=== PATIENT | male | born 1955 | race Caucasian/White ===

== ENCOUNTER 2016-12-04 18:45 | Inpatient (IN) | payer MEDICARE, MEDICAID ==
[2016-12-04] MEDS ORDERED: VANCOMYCIN HCL 1 GM in DEXTROSE 5 % IN WATER 250 ML IV ONE ×2 (19:22)
[2016-12-04] MEDS ORDERED: NORMAL SALINE 1,000 ML IV ONE (19:22)
--- NOTE | 2016-12-04 19:26 | ERNOTE ---
Medical Problem HPI - Narrative Date of Service: 12/04/16 - General Chief Complaint: Diabetes Related Problem Time Seen by Provider: 12/04/16 19:05 Source: patient - Immun/Allergies/Home Medications Immunizations: IMMUNIZATION HX Immunizations Up to Date Yes History of Influenza Vaccine No Hx Pneumococcal Vaccination No Allergies/Adverse Reactions: Allergies amoxicillin [From Augmentin] Allergy (Severe, Verified 12/04/16 19:04) Swelling of Face clavulanic acid [From Augmentin] Allergy (Severe, Verified 12/04/16 19:04) Swelling of Face Home Medications: HOME MEDICATIONS Clopidogrel Bisulfate [Plavix] 75 mg PO DAILY 12/04/16 [Last Taken Unknown] Furosemide [Lasix] 40 mg PO DAILY 12/04/16 [Last Taken Unknown] Insulin Aspart [Novolog Flexpen] 100 unit SQ BID 12/04/16 [Last Taken Unknown] Insulin Degludec [Tresiba Flextouch U-100] 100 unit SQ DAILY 12/04/16 [Last Taken Unknown] Linagliptin [Tradjenta] 5 mg PO DAILY 12/04/16 [Last Taken Unknown] Lisinopril 5 mg PO DAILY 12/04/16 [Last Taken Unknown] Lovastatin 80 mg PO HS 12/04/16 [Last Taken Unknown] Metolazone 2.5 mg PO DAILY 12/04/16 [Last Taken Unknown] Metoprolol Tartrate [Lopressor] 25 mg PO BID 12/04/16 [Last Taken Unknown] - History of Present History Narrative: This is a 61-year-old with a history of chronic kidney disease and severe diabetes insulin-dependent comes to the emergency department complaining of right leg swelling and pain. He says this been going on for 2 days. The patient has had cellulitis in his legs in the past, and this feels much like it did previously. He has multiple scabs due to venous stasis on the anterior hummel. He says that the swelling and redness is getting a little bit worse. He denies fever. He has had nausea and vomiting. He does have a history of DKA. Patient denies any chest pain or shortness of breath. He denies any recent car trips or plane trips. Patient has never had a blood clot. Review of Systems - Review of Systems Constitutional: Present: weakness, fatigue, malaise EYE: Present: no symptoms reported ENT: Present: no symptoms reported Respiratory: Present: no symptoms reported Cardiology: Present: no symptoms reported Gastrointestinal/Abdominal: Present: nausea, vomiting, eating less, drinking less. Absent: diarrhea, constipation, abdominal pain Genitourinary: Present: no symptoms reported Musculoskeletal: Present: muscle pain, joint pain, other - right lower extremity Skin: Present: rash, other - redness and warmth right lower extremity Neurological: Present: no symptoms reported Endocrine: Present: other - blood sugar has been increased Hematologic/Lymphatic: Present: no symptoms reported - Patient's Past Medical History Patient History - Medical: Diabetes Type 2 Insulin Dependent, Renal Failure Patient History - Cardiac/Respiratory: Hypertension, Hyperlipidemia Patient History - Cancer: No Hx of Cancer Patient History - Surgical Procedures: Appendectomy, Other, Hernia Repair Patient History - Other: None - Social History Living Situations: spouse Abuse History: No History of abuse Psych History: No pertinent hx Smoking Status: Former smoker Have you smoked in the past 12 months: No Do you dip or chew tobacco: No Alcohol Use: rarely Drug Use: none - Immunizations Immunizations Up to Date: Yes Hx Pneumococcal Vaccination: No History of Influenza Vaccine: No Physical Exam - Physical Exam General Appearance: Present: wd/wn, alert, no apparent distress Head Exam: Present: normal inspection, no evidence of injury Eye Exam: Normal inspection: bilateral, PERRL: bilateral, EOMI: bilateral Ears, Nose, Throat: Present: normal ENT inspection, normal pharynx Neck: Present: normal inspection, nontender Respiratory: Present: no respiratory distress, no accessory muscle use, chest nontender, lungs clear Cardiovascular/Chest: Present: regular rate, rhythm, no murmur, normal peripheral pulses Gastrointestinal/Abdominal: Present: normal bowel sounds, nontender, nondistended, soft, no organomegaly Back Exam: Present: normal inspection, no CVA tenderness, no vertebral tenderness Extremity Exam: Present: normal range of motion, extremity edema - 2+ edema pitting to the knee bilaterally, other - patient has multiple scabs on the shins of bilateral lower extremities. He does have some erythema posteriorly on the calf of the right lower extremity. It is slightly warmer than the left but not extremely hot. It does not have the classic appearance of cellulitis with a beefy red appearance. I feel no palpable cords Neurological Exam: Present: alert Skin Exam: Present: other - slight increased erythema of the right compared to the left. Mostly in the calf Lymphatic Exam: Present: no adenopathy ED Progress - Results and Orders Patient's Lab Results:: I have reviewed the patient's lab results. - Vital Signs Patient's Vital Signs:: I have reviewed the patient's vital signs. Vital Signs: Vital Signs 12/04/16 12/04/16 18:54 19:03 Temperature 39.4 C H Pulse Rate 101 H 97 Respiratory 28 H Rate Blood Pressure 165/91 O2 Sat by Pulse 93 Oximetry - EKG EKG: other - sinus tachycardia at 101, left axis deviation, voltage criteria for LVH. No definite ST segment elevation. Extremely late transition. T waves are normal. EKG read: Interp. by me - Progress/Reassessment Chief Complaint: Diabetes Related Problem Progress:: Improved Progress Note-Subjective: 12/04/16 20:21 Patient has had no further vomiting here in the emergency department. I've spoken with the hospitalist. She has accepted the patient. He is on his second liter of fluids. Source control has been initiated with vancomycin. I do not believe that he would be best served by going home this evening. The patient is happy to stay in the hospital. I'm uncertain what to make of his normal white count with a temperature of 39.3. He cannot have a CAT scan as his creatinine is 3.14. I do not want to kill little kidney function he has left. Departure - Departure Clinical Impression: Cellulitis, Sepsis Disposition: [facility] Condition: Stable - Critical Care Total Time (mins): 35 Critical Care: 35 minutes
[2016-12-04 19:46] LABS: Hematocrit 32.1 % (42.0-52.0); Mean Cell Volume 85.4 fl (78-100); Mean Corpuscular Hemoglobin 29.3 pg (27-31); Mean Corpuscular Hgb Conc 34.3 g/dl (32-36); Neutrophil # 6.7 K/mm3 (1.3-6.0); Neutrophil % 82.1 % (42-75.0); Platelet Count 87 K/mm3 (150-450); Red Blood Count 3.76 M/mm3 (4.7-6.0); White Blood Count 8.1 K/mm3 (4.0-10.5)
[2016-12-04] MEDS ORDERED: ACETAMINOPHEN 500 MG TABLET PO ONE (19:46)
[2016-12-04 19:55] LABS: ALT 30 U/L (19-67); AST 43 U/L (0-48); Albumin * 2.8 gm/dl (3.4-5.0); Alkaline Phosphatase * 125 U/L (50-170); Anion Gap 15.3 mmol/L (6.8-13.8); BUN/Creatinine Ratio 15.4 (9.0-21.6); Bilirubin, Total 1.4 mg/dL (0.0-1.1); Blood Urea Nitrogen 48 mg/dL (6-23); Ca. Corrected For Albumin 9.6 mg/dL (8.4-10.2); Carbon Dioxide 23.9 mmol/L (24-32.6); Chloride 100 mmol/L (97-106); Glucose * 261 mg/dL (70-110); Potassium 4.2 mmol/L (3.4-4.6); Sodium 135 mmol/L (132-142); Total Protein 7.9 gm/dL (6.2-8.2)
[2016-12-04 20:01] LABS: Urine Appearance Clear; Urine Bilirubin Negative (NEGATIVE); Urine Blood 250 /ul (NEGATIVE); Urine Color Yellow; Urine Ketone Negative (NEGATIVE)
[2016-12-04 20:02] LABS: Urine Bacteria 1+; Urine Nitrite Negative (NEGATIVE); Urine Protein 100 mg/dL (NEGATIVE); Urine Urobilinogen Normal (NORMAL); Urine WBC 0-5 /hpf (0-5)
[2016-12-04 20:04] LABS: Urine Yeast Few - 1+
[2016-12-04] MEDS ORDERED: NORMAL SALINE 1,000 ML IV PRN (20:07)
[2016-12-04] MEDS ORDERED: ACETAMINOPHEN 500 MG TABLET PO PRN (23:44)
[2016-12-04] MEDS: METOPROLOL TARTRATE 25 MG TABLET PO SCH (23:55)
[2016-12-04] MEDS: NORMAL SALINE 1,000 ML IV PRN (23:57)
--- NOTE | 2016-12-05 00:02 | HP ---
Chief Complaint - Chief Complaint Date of Service: 12/04/16 Time of Service: 23:06 Chief Complaint: Fatigue,cellulitis History of Present Illness: 61 years old male adm to the hospital from ER with reports of fatigue, BLLE swelling,shooting pain in BLL extremities and elevated temp that began 2 days ago. Per pt had cellulitis in the past to both legs. Pt stated his leg pain resulting from diabetic neuropathy and the swelling of the legs improved over the past few days. He denies nasuea, vomiting, shortness of breath, palpitation, cough or chest pain. 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 - Patient's Past Medical History Patient History - Medical: Diabetes Type 2 Insulin Dependent, Renal Failure Patient History - Cardiac/Respiratory: Hypertension, Hyperlipidemia, Myocardial Infarction - 2008, Sleep Apnea - Not using cpap Patient History - Cancer: No Hx of Cancer Patient History - Surgical Procedures: Appendectomy, Other, Hernia Repair - umbilical Patient History - Other: None - Family History Mother Family History - Medical: Father Family History - Medical: Family History - Cancer: Prostate - Social History Living Situations: spouse Abuse History: No History of abuse Psych History: No pertinent hx Smoking Status: Former smoker Have you smoked in the past 12 months: No Do you dip or chew tobacco: No Patient requests Smoking Cessation Consult: No Initiate information on Smoking Cessation: No Alcohol Use: rarely Drug Use: none - Immunizations Immunizations Up to Date: Yes Hx Pneumococcal Vaccination: No History of Influenza Vaccine: No Review Of Systems (GEN) - Review of Systems Generalized/Overall Review: Present: Chills, Fever, Fatigue EENTM: Present: No Symptoms Reported Respiratory: Present: No Symptoms Reported Cardiac: Present: No Symptoms Reported Abdominal: Present: Constipation Genitourinary: Present: No Symptoms Reported Musculoskeletal: Present: Joint Pain Neurological: Present: Parasthesia Skin: Present: Dryness, Other - BLLE venous stasis, right leg calf erythema, blister to shines Endocrine: Present: No Symptoms Reported Allergies/Adverse Reactions: Allergies Allergy/AdvReac Type Severity Reaction Status Date / Time amoxicillin [From Augmentin] Allergy Severe Swelling Verified 12/04/16 19:04 of Face clavulanic acid Allergy Severe Swelling Verified 12/04/16 19:04 [From Augmentin] of Face Home Medications: HOME MEDICATIONS Clopidogrel Bisulfate [Plavix] 75 mg PO DAILY 12/04/16 [Last Taken Unknown] Furosemide [Lasix] 40 mg PO DAILY 12/04/16 [Last Taken 12/04/16 08:00] Insulin Aspart [Novolog Flexpen] 30 unit SQ TID 12/04/16 [Last Taken 12/04/16 17 :00] Insulin Degludec [Tresiba Flextouch U-100] 144 unit SQ DAILY 12/04/16 [Last Taken 12/04/16 07:00] Linagliptin [Tradjenta] 5 mg PO DAILY 12/04/16 [Last Taken 12/04/16 08:00] Lisinopril 5 mg PO DAILY 12/04/16 [Last Taken 12/04/16 08:00] Lovastatin 80 mg PO HS 12/04/16 [Last Taken 12/03/16 21:00] Metolazone 2.5 mg PO DAILY 12/04/16 [Last Taken 12/04/16 08:00] Metoprolol Tartrate [Lopressor] 25 mg PO BID 12/04/16 [Last Taken 12/04/16 08:00 ] Exam - Exam Vital Signs: Vital Signs - Last Taken Temp 37.5 C 12/04/16 21:54 Pulse 95 12/04/16 21:54 Resp 20 12/04/16 21:54 BP 168/86 12/04/16 21:54 Pulse Ox 91 12/04/16 21:54 Constitutional: Present: Alert, Oriented x3, Cooperative, Well developed, No distress, Morbidly obese, Looks Older than stated age ENT Exam: Present: normal ENT inspection Eye Exam: bilateral eye: normal inspection Neck: Present: full range of motion Back Exam: Present: no CVA tenderness Breasts: Present: Exam deferred Respiratory: Present: chest non-tender, lungs clear Cardiovascular/Chest: Present: normal peripheral pulses, regular rate, rhythm, no chest tenderness Peripheral Pulses: dorsalis-pedis (R): 3+ - heard with doppler, dorsalis-pedis ( L): 3+ - heard with doppler Abdomen: Present: Normal bowel sounds, soft, nontender, nondistended, no masses Extremity: Present: lower extremity edema, slow capillary refill, swelling, other - cellulitis, venous stasis Skin Exam: Present: other - dry flaky skin,cellulitis back of right calf Lymphatic: Present: no adenopathy Neurologic: Present: oriented x 3 Appearance: Present: appropriate appearance Eye contact: Present: cooperative, good eye contact Thoughts: Present: normal thought pattern Diagnostic Studies: Laboratory Results WBC 8.1 K/mm3 (4.0-10.5) 12/04/16 19:08 RBC 3.76 M/mm3 (4.7-6.0) L 12/04/16 19:08 Hgb 11.0 gm/dL (13.5-18.0) L 12/04/16 19:08 Hct 32.1 % (42.0-52.0) L 12/04/16 19:08 MCV 85.4 fl (78-100) 12/04/16 19:08 MCH 29.3 pg (27-31) 12/04/16 19:08 MCHC 34.3 g/dl (32-36) 12/04/16 19:08 RDW 14.0 % (11.5-14.0) 12/04/16 19:08 Plt Count 87 K/mm3 (150-450) L 12/04/16 19:08 MPV 11.0 fl (6.0-9.5) H 12/04/16 19:08 Immature Gran % (Auto) 0.20 % (0.001-0.429) 12/04/16 19:08 Immature Gran # (Auto) 0.02 K/mm3 (0.000-0.0310) 12/04/16 19:08 Neutrophils % 82.1 % (42-75.0) H 12/04/16 19:08 Lymphocytes % 8.1 % (20-51) L 12/04/16 19:08 Monocytes % 7.4 % (0.0-9) 12/04/16 19:08 Eosinophils % 2.0 % (0.0-3.0) 12/04/16 19:08 Basophils % 0.2 % (0.0-1.0) 12/04/16 19:08 Nucleated RBC % 0.0 k/mm3 (0-1) 12/04/16 19:08 Neutrophils # 6.7 K/mm3 (1.3-6.0) H 12/04/16 19:08 Lymphocytes # 0.7 k/mm3 (1.5-3.5) L 12/04/16 19:08 Monocytes # 0.6 k/mm3 (0.0-1.0) 12/04/16 19:08 Eosinophils # 0.2 k/mm3 (0.0-0.7) 12/04/16 19:08 Absolute Basophils 0.0 k/mm3 (0.0-0.1) 12/04/16 19:08 pCO2 29.5 mmHg (35.0-48.0) L 12/04/16 19:22 pO2 70.4 mmHg (83.0-108.0) L 12/04/16 19:22 HCO3 24.2 mmol/L (21.0-28.0) 12/04/16 19:22 Total CO2 25.1 mmol/L (19.0-24.0) H 12/04/16 19:22 Base Excess 2.1 mmol/L (-2.0-3.0) 12/04/16 19:22 ABG pH 7.53 (7.35-7.45) H 12/04/16 19:22 ABG O2 Sat (Measured) 95.9 % (94.0-98.0) 12/04/16 19:22 Sodium 135 mmol/L (132-142) 12/04/16 19:08 Plasma Sodium 138 mmol/L (130-142) 12/04/16 19:08 Potassium 4.2 mmol/L (3.4-4.6) 12/04/16 19:08 Chloride 100 mmol/L (97-106) 12/04/16 19:08 Carbon Dioxide 23.9 mmol/L (24-32.6) L 12/04/16 19:08 Anion Gap 15.3 mmol/L (6.8-13.8) H 12/04/16 19:08 BUN 48 mg/dL (6-23) H 12/04/16 19:08 Creatinine 3.12 mg/dL (0.4-1.4) H 12/04/16 19:08 Est GFR (Non-Af Amer) 22 mL/min (60-130) L 12/04/16 19:08 BUN/Creatinine Ratio 15.4 (9.0-21.6) 12/04/16 19:08 Random Glucose 261 mg/dL (70-110) H 12/04/16 19:08 Lactic Acid, Venous 2.2 mmol/L (0.4-1.9) H* 12/04/16 19:30 Calcium 9.0 mg/dL (7.9-10.9) 12/04/16 19:08 Calcium Adj for Albumin 9.6 mg/dL (8.4-10.2) 12/04/16 19:08 Total Bilirubin 1.4 mg/dL (0.0-1.1) H 12/04/16 19:08 AST 43 U/L (0-48) 12/04/16 19:08 ALT 30 U/L (19-67) 12/04/16 19:08 Alkaline Phosphatase 125 U/L (50-170) 12/04/16 19:08 Total Protein 7.9 gm/dL (6.2-8.2) 12/04/16 19:08 Albumin 2.8 gm/dl (3.4-5.0) L 12/04/16 19:08 Urine Color Yellow 12/04/16 19:46 Urine Appearance Clear 12/04/16 19:46 Urine pH 6.0 pH (5.0-7.0) 12/04/16 19:46 Ur Specific [place] 1.020 SP.GR. (1.005-1.030) 12/04/16 19:46 Urine Protein 100 mg/dL (NEGATIVE) H 12/04/16 19:46 Urine Glucose (UA) 500 mg/dL (NEGATIVE) H 12/04/16 19:46 Urine Ketones Negative mg/dL (NEGATIVE) 12/04/16 19:46 Urine Blood 250 /ul (NEGATIVE) H 12/04/16 19:46 Urine Nitrate Negative (NEGATIVE) 12/04/16 19:46 Urine Bilirubin Negative mg/dl (NEGATIVE) 12/04/16 19:46 Prot Sulfosalicylic Acd 4+ mg/dL (0) H 12/04/16 19:46 Urine Urobilinogen Normal EU/dl (NORMAL) 12/04/16 19:46 Ur Leukocyte Esterase Negative /ul (NEGATIVE) 12/04/16 19:46 Urine RBC 10-25 /hpf (0-5) H 12/04/16 19:46 Urine WBC 0-5 /hpf (0-5) 12/04/16 19:46 Ur Epithelial Cells 0-5 /hpf (0-5) 12/04/16 19:46 Urine Bacteria 1+ (NONE) H 12/04/16 19:46 Urine Yeast Few - 1+ (NONE) H 12/04/16 19:46 Urine Culture Comments No culture indicated 12/04/16 19:46 Serum Ketones Negative (NEGATIVE) 12/04/16 19:08 Assessment/Plan - Narrative Narrative: SIRs vs sepsis- likely due to venous stasis and cellulitis On adm lactic acid 2.2--->2.4, WBC 8.1, febrile Temp 37.7 In ER tylenol and vancomycin given Continue with IVF Blood culture pending Cellulitis Pt reports of swelling ,erythema and fever to right leg Vancomycin x1 was given in ER Initiated Clindamycin and pharmacy to dose Consider venous duplex to r/o DVT CKD On adm Bun/ Cre 48/3.12 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
[2016-12-05] MEDS ORDERED: INSULIN LISPRO 100 UNITS/ML VIAL ONE (00:19)
[2016-12-05] MEDS: INSULIN LISPRO 100 UNITS/ML VIAL SC SCH ×8 (00:21→20:50)
[2016-12-05] MEDS: ROSUVASTATIN CALCIUM 10 MG TABLET PO SCH ×2 (00:26→20:45)
[2016-12-05] MEDS: FAMOTIDINE 20 MG TABLET PO SCH ×2 (07:08→08:33)
[2016-12-05] MEDS: NORMAL SALINE 1,000 ML IV PRN ×2 (08:26→16:49)
[2016-12-05] MEDS: CLINDAMYCIN PHOSPHATE 300 MG in DEXTROSE 5 % IN WATER 50 ML IV SCH ×4 (08:27→16:46)
[2016-12-05] MEDS: METOPROLOL TARTRATE 25 MG TABLET PO SCH ×2 (08:27→20:48)
[2016-12-05] MEDS: HEPARIN SODIUM,PORCINE 5,000 UNITS/ML VIAL SC SCH ×2 (08:27→21:11)
[2016-12-05] MEDS: CLOPIDOGREL BISULFATE 75 MG TABLET PO SCH (10:01)
--- NOTE | 2016-12-05 10:02 | PN ---
Subjective - Date and Time Seen Date: 12/05/16 Time: 09:46 Subjective Narrative: Patient is afebrile now. Tmax was 39.4 int he ER. Objective - Review of Systems Generalized/Overall Review: Reports: Fever. Denies: Weakness, Chills EENTM: Reports: No Symptoms Reported Respiratory: Denies: Cough, Shortness of Breath Cardiac: Reports: Edema. Denies: Chest Pain, Palpitations Abdominal: Denies: Nausea, Vomiting Genitourinary Symptoms: Denies: Urgency, Frequency Musculoskeletal Complaints: Reports: Other - leg pain Neurological: Reports: Parasthesia - Vitals Vitals: Last Vital Signs Temp 36.5 C 12/05/16 06:39 Pulse 63 12/05/16 08:27 Resp 17 12/05/16 06:39 BP 149/69 12/05/16 08:27 Pulse Ox 96 12/05/16 06:39 - Abnormal Lab Findings Abnormal Lab Findings: Abnormal Lab Results 12/04/16 Range/Units 23:50 Lactic Acid, Venous 2.3 H* (0.4-1.9) mmol/L - Exam Constitutional: Present: Alert, Oriented x3, Cooperative ENT Exam: Present: hearing grossly normal Neck: Present: supple Breasts: Present: Exam deferred Respiratory: Present: decreased breath sounds, No rales, No wheezing Cardiovascular/Chest: Present: regular rate, rhythm, no JVD, no murmur Abdomen: Present: Normal bowel sounds, soft, nontender, nondistended, obese Extremity: Present: no calf tenderness, lower extremity edema Assessment/Plan - Problems/Diagnosis (1) Cellulitis Problem: Acute Qualifiers: Site of cellulitis: extremity Site of cellulitis of extremity: lower extremity Narrative: elevate legs, continue with IV clindamycin. consider continuing Vanco for possible MRSA. will repeat BMP this afternoon. (2) Lactic acid acidosis Problem: Acute (3) Sepsis Problem: Acute Qualifiers: Sepsis type: sepsis due to unspecified organism Qualified Code(s): A41.9 - Sepsis, unspecified organism Narrative: await BC and continue with IV clindamycin. (4) CKD (chronic kidney disease) Problem: Chronic Qualifiers: Chronic kidney disease stage: stage 4 (severe) Qualified Code(s): N18.4 - Chronic kidney disease, stage 4 (severe) Narrative: will get SAMMY. continue with IVF. monitor I and O. hold diuretics for now. 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 he says he has had no low blood sugars with this regimen. (6) CAD (coronary artery disease) of artery bypass graft Problem: Chronic Qualifiers: [place] vs. transplanted heart: [place] heart Associated angina: without angina Qualified Code(s): I25.810 - Atherosclerosis of coronary artery bypass graft(s) without angina pectoris Narrative: continue with BB and plavix. (7) Thrombocytopenia Problem: Acute Narrative: etiology? essential thrombocytopenia? will get medical records form [facility]. will watch for HIT. if platelt starts to go down further- d/c heparin and change to argatroban.
[2016-12-05] MEDS ORDERED: INSULIN ASPART 30 UNIT SQ SCH (13:00)
[2016-12-05 18:09] LABS: Hematocrit 29.2 % (42.0-52.0); Mean Cell Volume 87.2 fl (78-100); Mean Corpuscular Hemoglobin 29.9 pg (27-31); Mean Corpuscular Hgb Conc 34.2 g/dl (32-36); Mean Platelet Volume 10.8 fl (6.0-9.5); Neutrophil # 3.7 K/mm3 (1.3-6.0); Neutrophil % 67.2 % (42-75.0); Platelet Count 72 K/mm3 (150-450); Red Blood Count 3.35 M/mm3 (4.7-6.0); Red Cell Distribution Width 14.3 % (11.5-14.0); White Blood Count 5.5 K/mm3 (4.0-10.5)
[2016-12-05 18:20] LABS: Anion Gap 13.6 mmol/L (6.8-13.8); BUN/Creatinine Ratio 16.6 (9.0-21.6); Calcium * 8.5 mg/dL (7.9-10.9); Carbon Dioxide 24.8 mmol/L (24-32.6); Estimated Creat Clear 25.9; Potassium 4.4 mmol/L (3.4-4.6)
[2016-12-05 18:38] LABS: Hemoglobin A1C 9.6 % (4.00-6.0)
[2016-12-05] MEDS ORDERED: VANCOMYCIN HCL 1 GM in DEXTROSE 5 % IN WATER 250 ML IV ONE ×2 (19:53)
[2016-12-05] MEDS ORDERED: VANCOMYCIN HCL 2 GM in NORMAL SALINE 500 ML IV SCH (20:30)
[2016-12-06] MEDS: CLINDAMYCIN PHOSPHATE 300 MG in DEXTROSE 5 % IN WATER 50 ML IV SCH ×2 (01:04)
[2016-12-06] MEDS: NORMAL SALINE 1,000 ML IV PRN ×2 (04:17→06:37)
[2016-12-06 06:06] LABS: Anion Gap 10.7 mmol/L (6.8-13.8); BUN/Creatinine Ratio 16.3 (9.0-21.6); Calcium * 8.2 mg/dL (7.9-10.9); Carbon Dioxide 25.6 mmol/L (24-32.6); Estimated Creat Clear 26.6; Potassium 4.3 mmol/L (3.4-4.6)
[2016-12-06] MEDS ORDERED: INSULIN DEGLUDEC SQ SCH (07:00)
--- NOTE | 2016-12-06 07:03 | PN ---
Subjective - Date and Time Seen Date: 12/06/16 Time: 06:34 Subjective Narrative: Patient seen today no distress, pt stated he was feeling good. He still have some pain to right leg but its getting better. He denies shortness of breath, cough, fever, chills and palpitation. Objective - Review of Systems Generalized/Overall Review: Reports: No Symptoms Reported EENTM: Reports: No Symptoms Reported Respiratory: Reports: No Symptoms Reported Cardiac: Reports: No Symptoms Reported Abdominal: Reports: No Symptoms Reported Genitourinary Symptoms: Reports: No Symptoms Reported Musculoskeletal Complaints: Reports: Other - right leg pain Skin: Reports: Other - cellulitis right leg more so than left improving - Vitals Vitals: Last Vital Signs Temp 37.1 C 12/06/16 02:13 Pulse 60 12/06/16 02:13 Resp 20 12/06/16 02:13 BP 100/53 12/06/16 02:13 Pulse Ox 96 12/06/16 02:13 - Abnormal Lab Findings Abnormal Lab Findings: Abnormal Lab Results 12/05/16 12/05/16 12/05/16 Range/Units 18:00 18:00 18:00 RBC 3.35 L (4.7-6.0) M/mm3 Hgb 10.0 L (13.5-18.0) gm/dL Hct 29.2 L (42.0-52.0) % RDW 14.3 H (11.5-14.0) % Plt Count 72 L (150-450) K/mm3 MPV 10.8 H (6.0-9.5) fl Lymphocytes % 17.2 L (20-51) % Monocytes % 10.9 H (0.0-9) % Eosinophils % 3.6 H (0.0-3.0) % Lymphocytes # 1.0 L (1.5-3.5) k/mm3 BUN 50 H (6-23) mg/dL Creatinine 3.01 H (0.4-1.4) mg/dL Est GFR (Non-Af Amer) 22 L (60-130) mL/min Random Glucose 242 H (70-110) mg/dL Hemoglobin A1c 9.6 H (4.00-6.0) % 12/06/16 Range/Units 05:35 RBC (4.7-6.0) M/mm3 Hgb (13.5-18.0) gm/dL Hct (42.0-52.0) % RDW (11.5-14.0) % Plt Count (150-450) K/mm3 MPV (6.0-9.5) fl Lymphocytes % (20-51) % Monocytes % (0.0-9) % Eosinophils % (0.0-3.0) % Lymphocytes # (1.5-3.5) k/mm3 BUN 48 H (6-23) mg/dL Creatinine 2.94 H (0.4-1.4) mg/dL Est GFR (Non-Af Amer) 23 L (60-130) mL/min Random Glucose 208 H (70-110) mg/dL Hemoglobin A1c (4.00-6.0) % - Exam Constitutional: Present: Alert, Oriented x3, Cooperative, No distress, Middle aged, Morbidly obese ENT Exam: Present: normal ENT inspection Neck: Present: full range of motion Breasts: Present: Exam deferred Respiratory: Present: chest non-tender, normal breath sounds Cardiovascular/Chest: Present: normal peripheral pulses Abdomen: Present: Normal bowel sounds, soft, nontender /Rectal: Present: Exam deferred Extremity: Present: normal range of motion, lower extremity edema, leg pain, pedal edema, slow capillary refill, swelling Skin Exam: Present: other - cellulitis , venous stasis Neurologic: Present: oriented x 3 Appearance: Present: appropriate appearance Eye contact: Present: cooperative, good eye contact Thoughts: Present: normal thought pattern Assessment/Plan Plan Narrative: Cellulitis elevate legs, continue with IV clindamycin. Vancomycin dose given overnight, concern for MRSA will repeat BMP this morning Venous duplex -Negative for DVT CKD (chronic kidney disease) Pt follow up with service attendant in [facility] Diuretics on hold for now Kidney Ultrasound: no significant hydronephrosis or evidence for obstruction. No solid renal mass. Normal bladder Diabetes will continue with his home regimen- he is on 140 mg of tresiba, Novolog 30 units TID before meals, tradjenta 5 mg PO q daily. he says he has had no low blood sugars with this regimen. A1C 9.6 follow up with Primary for management consistent carb diet Accu-check AC+HS Sepsis Blood culture pending Gentle hydration as pt having increased swelling to BLLE await BC and continue with IV clindamycin. He remain afebrile since hospitalization CAD (coronary artery disease) of artery bypass graft continue with BB and plavix. Thrombocytopenia etiology? essential thrombocytopenia? will get medical records form [facility]. will watch for HIT. if plt starts to go down further- d/c heparin and change to argatroban. 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
[2016-12-06] MEDS: INSULIN LISPRO 100 UNITS/ML VIAL SC SCH ×3 (07:07→11:50)
--- NOTE | 2016-12-06 08:25 | PN ---
Progess Note - Interim Narrative: 12/06/16 08:24 possible discharge today pending lactic acid and another dose of IV clindamysin. his erythema and warmeness is significantly reduced.
[2016-12-06 08:37] LABS: Hematocrit 30.6 % (42.0-52.0); Hemoglobin 10.3 gm/dL (13.5-18.0); Mean Cell Volume 88.4 fl (78-100); Mean Corpuscular Hemoglobin 29.8 pg (27-31); Mean Corpuscular Hgb Conc 33.7 g/dl (32-36); Mean Platelet Volume 11.4 fl (6.0-9.5); Neutrophil # 3.3 K/mm3 (1.3-6.0); Platelet Count 67 K/mm3 (150-450); Red Blood Count 3.46 M/mm3 (4.7-6.0); Red Cell Distribution Width 14.6 % (11.5-14.0); White Blood Count 5.4 K/mm3 (4.0-10.5)
[2016-12-06] MEDS ORDERED: WATER IV SCH ×2 (09:00)
[2016-12-06] MEDS ORDERED: FUROSEMIDE 40 MG TABLET PO SCH (09:00)
[2016-12-06] MEDS ORDERED: METOLAZONE 2.5 MG TABLET PO SCH (09:00)
[2016-12-06] MEDS ORDERED: LISINOPRIL 5 MG TABLET PO SCH (09:00)
[2016-12-06] MEDS ORDERED: CLINDAMYCIN PHOSPHATE IV SCH ×2 (09:00)
[2016-12-06] MEDS ORDERED: LINAGLIPTIN 5 MG PO SCH (09:00)
[2016-12-06] MEDS ORDERED: DEXTROSE 5% IV SCH ×2 (09:00)
--- NOTE | 2016-12-06 09:14 | DS ---
(1) Cellulitis Diagnosis(s): continue with oral clindamycin. Problem: Acute Qualifiers: Site of cellulitis: extremity Site of cellulitis of extremity: lower extremity (2) Lactic acid acidosis Problem: Resolved (3) CKD (chronic kidney disease) Problem: Chronic Qualifiers: Chronic kidney disease stage: stage 4 (severe) Qualified Code(s): N18.4 - Chronic kidney disease, stage 4 (severe) (4) Diabetes Problem: Chronic Qualifiers: Diabetes mellitus type: type 2 Diabetes mellitus complication detail: with chronic kidney disease Diabetes mellitus senior living insulin use: with senior living use Chronic kidney disease stage: stage 4 (severe) (5) CAD (coronary artery disease) of artery bypass graft Problem: Chronic Qualifiers: [place] vs. transplanted heart: [place] heart Associated angina: without angina Qualified Code(s): I25.810 - Atherosclerosis of coronary artery bypass graft(s) without angina pectoris (6) Thrombocytopenia Diagnosis(s): etilology ? ITP ? will need a hematology consult. Problem: Acute Description of Stay: Luis Clifton, is a 61 years old male adm to the hospital from ER on with reports of fatigue, BLLE swelling,shooting pain in BLL extremities and elevated temp that began 2 days ago. Per pt had cellulitis in the past to both legs. Pt stated his leg pain resulting from diabetic neuropathy and the swelling of the legs improved over the past few days. He denies nasuea, vomiting , shortness of breath, palpitation, cough or chest pain. 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 His temperature in the ER was 39.4 but his WBC was WNL. His Cr was 3.12. His platelts were 87. He was given a dose IV Vancomycin. He was started on IV clindamycin and received a total of 4 doses . Today his erythema and warmness has sginificantly reduced. His platelet is 62. He is stable to be discharged today with oral clindamycin and to have a repeat CBC, BMP on Tuesday. Need to watch out his platelets as clindamycin may decrease it further. Follow up with his PCP on . He will need a Hematology consult for his platelets. Procedures Performed: none Discharge Disposition: Home self care Disposition: Home self-care Condition: Stable Discharge Activity: Activity as tolerated Discharge Diet: Consistent carbs, Low salt Additional Patient Instructions (free text): PCP Radha Boyle at [facility]. Follow up with his PCP on . . Will need BMP and CBC on Tuesday. Recommend Hematology consult for thrombocytopenia. Follow up with Radha Boyle 12/09 at 10:45. Prescriptions (Any new or edited meds): Clindamycin HCl [Cleocin HCl] 300 mg PO QID #40 capsule Mupirocin [Bactroban] 1 appl TP BID #22 gm Complete Home Medications List: Complete Home Medication List: Clopidogrel Bisulfate [Plavix] 75 mg PO DAILY 12/04/16 Furosemide [Lasix] 40 mg PO DAILY 12/04/16 Insulin Aspart [Novolog Flexpen] 30 unit SQ TID 12/04/16 Insulin Degludec [Tresiba Flextouch U-100] 144 unit SQ DAILY 12/04/16 Linagliptin [Tradjenta] 5 mg PO DAILY 12/04/16 Lisinopril 5 mg PO DAILY 12/04/16 Lovastatin 80 mg PO HS 12/04/16 Metolazone 2.5 mg PO DAILY 12/04/16 Metoprolol Tartrate [Lopressor] 25 mg PO BID 12/04/16 Acetaminophen [Tylenol] 1,000 mg PO Q8H PRN tablet 12/06/16 Clindamycin HCl [Cleocin HCl] 300 mg PO QID #40 capsule 12/06/16 Mupirocin [Bactroban] 1 appl TP BID #22 gm 12/06/16
[2016-12-06] MEDS: HEPARIN SODIUM,PORCINE 5,000 UNITS/ML VIAL SC SCH (09:22)
[2016-12-06] MEDS: METOPROLOL TARTRATE 25 MG TABLET PO SCH (09:24)
[2016-12-06] MEDS: CLOPIDOGREL BISULFATE 75 MG TABLET PO SCH (09:25)
[2016-12-06] MEDS: FAMOTIDINE 20 MG TABLET PO SCH (09:25)
[2016-12-06 10:53] VITALS: BP 142/80
== END 2016-12-06 13:53 | disposition home or self-care (01) | DRG 603 ==
LOC: ER 18:45 → MS 21:42
PROVIDERS: ADMIT Nurse Practitioner; ATTEND Internal Medicine
PROC: 4A033R1 Measurement of Arterial Saturation, Peripheral, Percutaneous Approach (ICD-10-PCS; principal; 2016-12-04)
DX: L03.116 Cellulitis of left lower limb (principal); Z68.42 Body mass index [BMI] 45.0-49.9, adult; N18.4 Chronic kidney disease, stage 4 (severe); I25.810 Atherosclerosis of coronary artery bypass graft(s) without angina pectoris; L03.115 Cellulitis of right lower limb; I87.8 Other specified disorders of veins; E11.40 Type 2 diabetes mellitus with diabetic neuropathy, unspecified; E66.01 Morbid (severe) obesity due to excess calories; E11.22 Type 2 diabetes mellitus with diabetic chronic kidney disease; I12.9 Hypertensive chronic kidney disease with stage 1 through stage 4 chronic kidney disease, or unspecified chronic kidney disease; I25.2 Old myocardial infarction; Z79.4 Long term (current) use of insulin; Z95.1 Presence of aortocoronary bypass graft

== ENCOUNTER 2017-03-10 06:15 | Emergency (ER) | payer MEDICARE, MEDICAID ==
--- NOTE | 2017-03-10 06:51 | ERNOTE ---
<Marty Robertson - Last Filed: 03/10/17 08:12> Neuro HPI ER Record Presenting Symptoms: weakness, confusion Time Seen by Provider: 03/10/17 06:28 Source: patient Exam Limitations: no limitations Immunizations: IMMUNIZATION HX Immunizations Up to Date Yes History of Influenza Vaccine No Hx Pneumococcal Vaccination No Allergies/Adverse Reactions: Allergies Allergy/AdvReac Type Severity Reaction Status Date / Time amoxicillin [From Augmentin] Allergy Severe Swelling Verified 03/10/17 06:31 of Face clavulanic acid Allergy Severe Swelling Verified 03/10/17 06:31 [From Augmentin] of Face Home Medications: HOME MEDICATIONS Clopidogrel Bisulfate [Plavix] 75 mg PO DAILY 12/04/16 [Last Taken Unknown] Furosemide [Lasix] 40 mg PO DAILY 12/04/16 [Last Taken 12/04/16 08:00] Insulin Aspart [Novolog Flexpen] 30 unit SQ TID 12/04/16 [Last Taken 12/04/16 17 :00] Insulin Degludec [Tresiba Flextouch U-100] 144 unit SQ DAILY 12/04/16 [Last Taken 12/04/16 07:00] Linagliptin [Tradjenta] 5 mg PO DAILY 12/04/16 [Last Taken 12/04/16 08:00] Lisinopril 5 mg PO DAILY 12/04/16 [Last Taken 12/04/16 08:00] Lovastatin 80 mg PO HS 12/04/16 [Last Taken 12/03/16 21:00] Metolazone 2.5 mg PO DAILY 12/04/16 [Last Taken 12/04/16 08:00] Metoprolol Tartrate [Lopressor] 25 mg PO BID 12/04/16 [Last Taken 12/04/16 08:00 ] Acetaminophen [Tylenol] 1,000 mg PO Q8H PRN tablet 12/06/16 [Last Taken Unknown ] Clindamycin HCl [Cleocin HCl] 300 mg PO QID #40 capsule 12/06/16 [Last Taken Unknown] Mupirocin [Bactroban] 1 appl TP BID #22 gm 12/06/16 [Last Taken Unknown] - History of Present Illness Narrative: Pt began to be weak and confused yesterday, today his thought he was significantly worse upon awakening and presented to the ED. Onset: gradual onset - yesterday Severity: moderate - Character of Deficits New weakness: Present: general (diffuse) Additional Deficits: Present: impaired speech - slightly slurred, slow, decrease ability to stand Baseline Cognition: Present: alert, oriented x 4 Baseline Gait: Present: walks w/o assistance Associated Symptoms: Reports: confused, trouble concentrating Review of Systems - Review of Systems Constitutional: Present: weight loss - purposeful. Absent: recent illness, fever, chills EYE: Absent: blurred vision, double vision, vision changes ENT: Absent: nose congestion, sore throat Respiratory: Absent: shortness of breath, cough Cardiology: Absent: chest pain, palpitations Gastrointestinal/Abdominal: Present: nausea - this morning. Absent: vomiting, abdominal pain Genitourinary: Present: hematuria - microscopic found lately, no cause found. Absent: frequency, pain, dysuria Musculoskeletal: Absent: joint pain, joint swelling Skin: Present: dryness, other - stasis sores on LE's.. Absent: rash Neurological: Present: tremors. Absent: headache, numbness, tingling Endocrine: Absent: excessive sweating, flushing, increased thirst, increased urine Hematologic/Lymphatic: Present: no symptoms reported Psych: Present: no symptoms reported - Patient's Past Medical History Patient History - Medical: Diabetes Type 2 Insulin Dependent, Renal Failure Patient History - Cardiac/Respiratory: Hypertension, Hyperlipidemia, Myocardial Infarction, Sleep Apnea Patient History - Cancer: No Hx of Cancer Patient History - Surgical Procedures: Appendectomy, Other, Hernia Repair Patient History - Other: None - Family History Mother Family History - Medical: Father Family History - Medical: Family History - Cancer: Prostate - Social History Living Situations: home Abuse History: No History of abuse Psych History: No pertinent hx Alcohol Use: none Drug Use: none - Immunizations Immunizations Up to Date: Yes Hx Pneumococcal Vaccination: No History of Influenza Vaccine: No Physical Exam - Physical Exam General Appearance: Present: wd/wn, alert, no apparent distress Head Exam: Present: normal inspection, no evidence of injury Eye Exam: Normal inspection: bilateral, PERRL: bilateral, EOMI: bilateral Ears, Nose, Throat: Present: normal ENT inspection, normal pharynx Neck: Present: normal inspection, nontender Respiratory: Present: no respiratory distress, normal breath sounds, chest nontender, lungs clear Cardiovascular/Chest: Present: tachycardia, systolic murmur - 2/6. Absent: chest tenderness Gastrointestinal/Abdominal: Present: normal bowel sounds, nontender, soft - obese Extremity Exam: Present: extremity edema - bilateral 2+ Neurological Exam: Present: alert, oriented, no motor/sensory deficits Skin Exam: Present: other - dry scaly skin b/l LE, Some scabbed wounds on right anterior leg, no drainage or erythema Fraser Coma Scale - Assess Eye Opening: Spontaneous Motor: Obeys Commands Verbal: Oriented - Total Coma Scale Total: 15 Initial Stroke Assessment - Date/Time of assessment Stroke Scale Date: 03/10/17 Stroke Scale Time: 06:25 - NIH Stroke Scale Level of Consciousness: Alert LOC Questions (Year and Age): Answers both correctly LOC Commands (open/close eyes/fist): Performs both correctly Lateral Gaze Paresis: None Visual Field Loss: No visual loss Facial Palsy: Normal movement Right Arm Motor (10 sec hold): No drift Left Arm Motor (10 sec hold): No drift Right Leg Motor (5 sec hold): No drift Left Leg Motor (5 sec hold): No drift Limb Ataxia (finger/nose heel/hummel): Absent Sensory Loss (pinprick arms/legs/face): No sensory loss Language Aphasia (description/naming/reading): No aphasia; normal Dysarthria (speech clarity): Slurring, intelligeble Neglect Inattention (visual/tactile/auditory/spatial/person): No neglect Initial Stroke Scale Score:: 1 - Stroke Risk Assessment Stroke Risk Assessment Level: 1-4 Mild Impairment Stroke Inclusion/Exclusion Cri - Inclusion Questions: Yes Onset of symptoms <3 1/2 hours of admission to ETC: No ED Progress - Results and Orders Patient's Lab Results:: I have reviewed the patient's lab results. Results and Orders: Laboratory Tests 03/10/17 03/10/17 03/10/17 06:36 06:36 06:36 WBC 6.0 Hgb 11.0 L Hct 31.9 L Plt Count 97 L Sodium 141 Potassium 3.8 Chloride 103 Carbon Dioxide 25.4 BUN 47 H Creatinine 3.43 H D Random Glucose 136 H Lactic Acid, Venous 2.2 H* Calcium 9.1 Total Bilirubin 1.2 H AST 38 ALT 28 Alkaline Phosphatase 98 Troponin I 0.020 Total Protein 8.0 Albumin 3.1 L Urine Color Urine Appearance Urine pH Ur Specific [place] Urine Protein Urine Glucose (UA) Urine Ketones Urine Blood Urine Nitrate Urine Bilirubin Prot Sulfosalicylic Acd Urine Urobilinogen Ur Leukocyte Esterase Urine RBC Urine WBC Ur Epithelial Cells Urine Bacteria Urine Culture Comments 03/10/17 06:42 WBC Hgb Hct Plt Count Sodium Potassium Chloride Carbon Dioxide BUN Creatinine Random Glucose Lactic Acid, Venous Calcium Total Bilirubin AST ALT Alkaline Phosphatase Troponin I Total Protein Albumin Urine Color Yellow Urine Appearance Slightly cloudy Urine pH 6.0 Ur Specific [place] 1.020 Urine Protein 100 H Urine Glucose (UA) Negative Urine Ketones Negative Urine Blood 250 H Urine Nitrate Negative Urine Bilirubin Negative Prot Sulfosalicylic Acd 1+ Urine Urobilinogen Normal Ur Leukocyte Esterase Negative Urine RBC 0-5 Urine WBC None seen Ur Epithelial Cells Trace Urine Bacteria None seen Urine Culture Comments No culture indicated - Vital Signs Patient's Vital Signs:: I have reviewed the patient's vital signs. Vital Signs: Vital Signs 03/10/17 06:25 Temperature 36.9 C Pulse Rate 114 H Respiratory 14 Rate Blood Pressure 174/87 O2 Sat by Pulse 96 Oximetry - EKG EKG: supraventricular tachycardia, RBBB - New since 12/04/16 EKG read: Interp. by id - X-Ray X-Ray #1 X-Ray: chest Interpretation: Interp. by me X-ray Comments: no acute cardiopulmonary changes. - CT/Ultrasound CT/Ultrasound Narrative: CT head: no acute changes, no mass or midline shift. - Progress/Reassessment Chief Complaint: Altered Mental Status - Transfer of Care Physician Sign Out: Marty Robertson Receiving Physician: Sally Santoro Pending Results: X-ray results Expected Disposition: Discharge Departure Clinical Impression: Altered awareness, transient - Departure Disposition: Home Follow Up Needed Condition: Stable Referrals: Radha Boyle [employer] [Primary Care Provider] - <Sally Santoro - Last Filed: 03/10/17 10:29> Neuro HPI ER Record Immunizations: IMMUNIZATION HX Immunizations Up to Date Yes History of Influenza Vaccine No Hx Pneumococcal Vaccination No ED Progress - Vital Signs Vital Signs: Vital Signs 03/10/17 03/10/17 03/10/17 06:25 06:42 06:47 Temperature 36.9 C Pulse Rate 114 H 115 H 105 H Respiratory 14 15 Rate Blood Pressure 174/87 156/71 O2 Sat by Pulse 96 96 Oximetry 03/10/17 03/10/17 03/10/17 07:36 08:03 08:32 Temperature Pulse Rate 98 94 89 Respiratory 15 13 16 Rate Blood Pressure 148/76 149/75 142/81 O2 Sat by Pulse 99 98 96 Oximetry 03/10/17 03/10/17 03/10/17 09:33 10:04 10:19 Temperature Pulse Rate 95 113 H 96 Respiratory 16 16 21 H Rate Blood Pressure 150/84 159/84 159/84 O2 Sat by Pulse 96 97 97 Oximetry - Transfer of Care Additional Notes: Patient is a 61-year-old with a past medical history significant for chronic kidney failure, type 2 diabetes presenting to the emergency room with weakness and confusion. Upon arrival patient was evaluated by Dr. Rolon. Vitals were fine to be stable, physical examination was otherwise unremarkable. See Dr. Robertson's note. CAT scan of the head was consistent with no acute abnormality. Chest x-ray reviewed unremarkable for any infiltrates or consolidation, CBC reviewed with no white count or shift noted. Complete metabolic panel was consistent with a creatinine of 3.4 and calcium was 2.2. Patient received a bolus of IV fluids and lactic acid repeated came down to 1.6. Patient was discharged and asked to follow up with his primary care physician tomorrow or latest on Tuesday
[2017-03-10 06:57] LABS: Urine Bilirubin Negative (NEGATIVE); Urine Blood 250 /ul (NEGATIVE); Urine Ketone Negative (NEGATIVE); Urine Nitrite Negative (NEGATIVE); Urine Protein 100 mg/dL (NEGATIVE); Urine Urobilinogen Normal (NORMAL)
[2017-03-10 06:58] LABS: Hematocrit 31.9 % (42.0-52.0); Mean Cell Volume 88.6 fl (78-100); Mean Corpuscular Hemoglobin 30.6 pg (27-31); Mean Corpuscular Hgb Conc 34.5 g/dl (32-36); Mean Platelet Volume 10.4 fl (6.0-9.5); Neutrophil # 3.9 K/mm3 (1.3-6.0); Platelet Count 97 K/mm3 (150-450); Red Cell Distribution Width 13.9 % (11.5-14.0)
[2017-03-10 07:13] LABS: Albumin * 3.1 gm/dl (3.4-5.0); Anion Gap 16.4 mmol/L (6.8-13.8); BUN/Creatinine Ratio 13.7 (9.0-21.6); Bilirubin, Total 1.2 mg/dL (0.0-1.1); Ca. Corrected For Albumin 9.5 mg/dL (8.4-10.2); Calcium * 9.1 mg/dL (7.9-10.9); Carbon Dioxide 25.4 mmol/L (24-32.6); Potassium 3.8 mmol/L (3.4-4.6)
[2017-03-10 07:13] LABS: Urine Appearance Slightly Cloudy; Urine Color Yellow
[2017-03-10 07:14] LABS: Urine Bacteria None Seen; Urine RBC 0-5 /hpf (0-5); Urine WBC None Seen /hpf (0-5)
[2017-03-10 07:14] LABS: Troponin I 0.02 ng/ml (0.00-0.10)
[2017-03-10] MEDS ORDERED: NORMAL SALINE 1,000 ML IV ONE (07:38)
[2017-03-10 10:08] VITALS: BP 159/84
== END 2017-03-10 10:44 | disposition home or self-care (01) ==
LOC: ER 06:15
DX: R40.4 Transient alteration of awareness (principal); E11.9 Type 2 diabetes mellitus without complications; Z79.4 Long term (current) use of insulin; I10 Essential (primary) hypertension; I25.2 Old myocardial infarction; E78.5 Hyperlipidemia, unspecified

== ENCOUNTER 2017-10-20 13:18 | Observation (INO) | payer MEDICAID, MEDICARE ==
--- NOTE | 2017-10-20 14:10 | ERNOTE ---
Integumentary HPI - Narrative Date of Service: 10/20/17 - General Presenting Symptoms: other - Cellulitis Time Seen by Provider: 10/20/17 13:57 Source: patient, family, RN notes reviewed Exam Limitations: clinical condition - Immun/Allergies/Home Medications Immunizations: IMMUNIZATION HX Immunizations Up to Date No History of Influenza Vaccine No Hx Pneumococcal Vaccination No Allergies/Adverse Reactions: Allergies Allergy/AdvReac Type Severity Reaction Status Date / Time amoxicillin [From Augmentin] Allergy Severe Swelling Verified 10/20/17 13:48 of Face clavulanic acid Allergy Severe Swelling Verified 10/20/17 13:48 [From Augmentin] of Face Home Medications: HOME MEDICATIONS Insulin Aspart [Novolog Flexpen] 30 unit SQ TID 12/04/16 [Last Taken 12/04/16 17 :00] Insulin Degludec [Tresiba Flextouch U-100] 144 unit SQ DAILY 12/04/16 [Last Taken 12/04/16 07:00] Linagliptin [Tradjenta] 5 mg PO DAILY 12/04/16 [Last Taken 12/04/16 08:00] Acetaminophen [Tylenol] 1,000 mg PO Q8H PRN tablet 12/06/16 [Last Taken Unknown ] Mupirocin [Bactroban] 1 appl TP BID #22 gm 12/06/16 [Last Taken Unknown] levETIRAcetam [Keppra Xr] 500 mg PO BID 04/06/17 [Last Taken Unknown] Atorvastatin Calcium [Lipitor] 40 mg PO DAILY #30 tablet 04/07/17 [Last Taken Unknown] Cholecalciferol (Vitamin D3) [Vitamin D3] 5,000 unit PO DAILY #30 tablet [Last Taken Unknown] Lactulose [Enulose] 20 g PO TID #1 btl 04/07/17 [Last Taken Unknown] Metoprolol Succinate 25 mg PO HS #30 tab.er.24h 04/07/17 [Last Taken Unknown] - Pain Pain Score: 0 - History of Present Illness Narrative: 62 year old male patient presents to the ED with his for possible cellulitis. He has chronic venous stasis of both lower legs and has had cellulitis before. He has had some blisters develop on the right leg in the past couple of days, but denies any increased pain or edema. His also reports that he is somewhat confused. He takes lactulose to control his ammonia level and has a history of hepatic encephalopathy. He was last admitted for this in March of last year. His reports that he has not missed any doses of lactulose and he has not had any recent medication changes. He has been outside in the heat more than usual in the past couple of days but was not exerting himself. Location: Reports: lower extremity Quality: Denies: itching, painful Associated Symptoms: Reports: blisters. Denies: swelling/mass/lumps, edema, fever Prior Treatment: Denies: recently seen Review of Systems - Review of Systems Constitutional: Absent: fever, chills, malaise EYE: Present: no symptoms reported ENT: Absent: nose congestion, sore throat Respiratory: Absent: shortness of breath, cough Cardiology: Absent: chest pain, palpitations Gastrointestinal/Abdominal: Present: diarrhea. Absent: nausea, vomiting, abdominal pain Genitourinary: Absent: dysuria, decreased urinary output Musculoskeletal: Absent: muscle pain, joint pain Skin: Present: lesions. Absent: rash, change in color Neurological: Absent: headache, weakness, numbness, tingling Endocrine: Present: no symptoms reported Hematologic/Lymphatic: Absent: easy bruising, easy bleeding Psych: Present: no symptoms reported Medical History (Last Updated 10/20/17 @ 13:50 by Aspen Lopez RN) Chronic kidney disease Coronary artery disease Diabetes History of cellulitis Hyperlipidemia Hypertension Seizure Surgical History: Surgical History (Last Updated 10/20/17 @ 13:46 by Aspen Lopez RN) H/O hernia repair Hx of CABG Social History: Preferred Language [place] Smoking Status Former smoker Abuse History No History of abuse Psych History No pertinent hx Alcohol Use none Drug Use none Physical Exam - Physical Exam General Appearance: Present: alert, no apparent distress, obese Head Exam: Present: normal inspection Eye Exam: Normal inspection: bilateral Ears, Nose, Throat: Present: normal ENT inspection, normal pharynx Neck: Present: normal inspection, nontender, supple Respiratory: Present: no respiratory distress, normal breath sounds, no accessory muscle use, lungs clear Cardiovascular/Chest: Present: regular rate, rhythm, no murmur Extremity Exam: Present: non-tender, normal range of motion, extremity edema - mild, lower legs. Absent: joint swelling Neurological Exam: Present: alert. Absent: oriented, normal mood/affect Skin Exam: Present: warm/dry, other - Lower legs with chronic venous stasis discoloration, blistering/weeping on right leg, no warmth or tenderness ED Progress - Results and Orders Patient's Lab Results:: I have reviewed the patient's lab results. - Vital Signs Patient's Vital Signs:: I have reviewed the patient's vital signs. Vital Signs: Vital Signs 10/20/17 13:51 Temperature 36.3 C Pulse Rate 72 Respiratory Rate 16 Blood Pressure 163/67 H O2 Sat by Pulse Oximetry 99 - Progress/Reassessment Chief Complaint: Cellulitis Progress:: Unchanged Plan - Plan Plan: Dr. Lomax contacted and the patient will be admitted to observation status. He will be receiving IV fluids and is to have strict I&O. He is also going to be given extra lactulose. He was started on Rocephin in the ED for cellulitis in the right leg. Departure Clinical Impression: Hepatic encephalopathy, Stage 4 chronic kidney disease, Cellulitis of right leg - Departure Disposition: Still a patient Condition: Serious Referrals: Patricia Zapata MD [Primary Care Provider] -
[2017-10-20 14:47] LABS: Hematocrit 31.7 % (42.0-52.0); Hemoglobin 10.4 gm/dL (13.5-18.0); Mean Cell Volume 89.8 fl (78-100); Mean Corpuscular Hemoglobin 29.5 pg (27-31); Mean Corpuscular Hgb Conc 32.8 g/dl (32-36); Mean Platelet Volume 10.6 fl (8-11.3); Neutrophil % 63.7 % (42-75.0); Platelet Count 108 K/mm3 (150-450); Red Blood Count 3.53 M/mm3 (4.7-6.0); Red Cell Distribution Width 15.5 % (11.5-14.0); White Blood Count 6.2 K/mm3 (4.0-10.5)
[2017-10-20 14:55] LABS: Urine Bilirubin Negative (NEGATIVE); Urine Blood 50 /ul (NEGATIVE); Urine Ketone Negative (NEGATIVE); Urine Nitrite Negative (NEGATIVE); Urine Protein 30 mg/dL (NEGATIVE); Urine pH 5.5 pH (5.0-7.0)
[2017-10-20 15:10] LABS: Urine Appearance Clear (CLEAR); Urine Bacteria None Seen; Urine Color Yellow; Urine WBC TRACE /hpf (0-5)
[2017-10-20 15:16] LABS: Albumin * 2.8 gm/dl (3.4-5.0); Anion Gap 15.6 mmol/L (6.8-13.8); BUN/Creatinine Ratio 13.2 (9.0-21.6); Ca. Corrected For Albumin 9.4 mg/dL (8.4-10.2); Calcium * 8.8 mg/dL (7.9-10.9); Carbon Dioxide 22.9 mmol/L (24-32.6); Potassium 4.5 mmol/L (3.4-4.6); Total Protein 8.6 gm/dL (6.2-8.2)
[2017-10-20] MEDS ORDERED: NORMAL SALINE 1,000 ML IV ONE (15:45)
[2017-10-20 17:04] LABS: Cocaine Ur Negative (NEGATIVE); Urine Barbiturate Negative (NEGATIVE); Urine Benzodiazepines Negative (NEGATIVE); Urine Opiates Negative (NEGATIVE); Urine PCP Negative (NEGATIVE); Urine THC Negative (NEGATIVE)
[2017-10-20] MEDS: LACTULOSE 10 G/15 ML BTL PO SCH ×4 (18:26→22:16)
--- NOTE | 2017-10-20 20:03 | HP ---
Chief Complaint - Chief Complaint Date of Service: 10/20/17 Time of Service: 20:03 Chief Complaint: confusion, fatigue, cellulitis History of Present Illness: 62 years old male adm to the hospital with reports of increased fatigue, chills, confusion and cellulitis. Pt a poor historian and most information obtained from previous records, and other family members at the bedside. Per family pt has been confused for a while and was getting worse yesterday. He had similar episode 03/2018.He has not been taking his lactulose as prescribed.Yesterday he sat out in the Sun for several hours because he was feeling extremely cold. They have notices multiple blisters on both legs with increased drainage, redness and swelling. PMH significant for venous stasis, recurrent cellulitis, Hepatic encephalopathy, Diabetes, chronic renal failure stage 4 and Seizure ( diagnoses 6 months ago no observed activity,EEG showed right side seizure tendency of brain. he was started on keppra). In ER significant labs Ammonia Level 100, Bun/Cre 52/3.95 GFR 16 at his baseline, PLT 108 and Hgb/Hct 10.4/31.7. Plan of care discussed with pt and family, they verbalized understanding and agrees. Medical History (Last Updated 10/20/17 @ 21:33 by JOVAN Smith) Sleep apnea Venous stasis Chronic kidney disease Coronary artery disease Diabetes History of cellulitis Hyperlipidemia Hypertension Seizure Surgical History: Surgical History (Last Reviewed 10/20/17 @ 21:07 by Layla Arndt RN) H/O hernia repair Hx of CABG Family History: Family History (Last Updated 10/20/17 @ 21:34 by JOVAN Smith) Other Family history of cancer in brother Family history of cancer in mother Family history of prostate cancer in father Social History: Preferred Language Kyrgyz Smoking Status Former smoker Abuse History No History of abuse Psych History No pertinent hx Alcohol Use none Drug Use none Review Of Systems (GEN) - Review of Systems Generalized/Overall Review: Present: Chills, Fatigue EENTM: Present: No Symptoms Reported Respiratory: Present: No Symptoms Reported Cardiac: Present: No Symptoms Reported Abdominal: Present: Diarrhea Genitourinary: Present: No Symptoms Reported Musculoskeletal: Present: Other - unsteady gait Neurological: Present: Seizure, Weakness, Other - confusion Skin: Present: Other - luanne lower extr blisters, cellulits Endocrine: Present: No Symptoms Reported Immunizations: IMMUNIZATION HX Immunizations Up to Date No History of Influenza Vaccine No Hx Pneumococcal Vaccination No Allergies/Adverse Reactions: Allergies Allergy/AdvReac Type Severity Reaction Status Date / Time amoxicillin [From Augmentin] Allergy Severe Swelling Verified 10/20/17 13:48 of Face clavulanic acid Allergy Severe Swelling Verified 10/20/17 13:48 [From Augmentin] of Face Home Medications: HOME MEDICATIONS Insulin Aspart [Novolog Flexpen] 30 unit SQ TID 12/04/16 [Last Taken 12/04/16 17 :00] Insulin Degludec [Tresiba Flextouch U-100] 144 unit SQ DAILY 12/04/16 [Last Taken 12/04/16 07:00] Linagliptin [Tradjenta] 5 mg PO DAILY 12/04/16 [Last Taken 12/04/16 08:00] Acetaminophen [Tylenol] 1,000 mg PO Q8H PRN tablet 12/06/16 [Last Taken Unknown ] Mupirocin [Bactroban] 1 appl TP BID #22 gm 12/06/16 [Last Taken Unknown] levETIRAcetam [Keppra Xr] 500 mg PO BID 04/06/17 [Last Taken Unknown] Atorvastatin Calcium [Lipitor] 40 mg PO DAILY #30 tablet 04/07/17 [Last Taken Unknown] Cholecalciferol (Vitamin D3) [Vitamin D3] 5,000 unit PO DAILY #30 tablet [Last Taken Unknown] Lactulose [Enulose] 20 g PO TID #1 btl 04/07/17 [Last Taken Unknown] Metoprolol Succinate 25 mg PO HS #30 tab.er.24h 04/07/17 [Last Taken Unknown] Exam - Exam Vital Signs: Vital Signs - Last Taken Temp 36.5 C 10/20/17 17:55 Pulse 66 10/20/17 17:55 Resp 16 10/20/17 17:55 BP 140/44 10/20/17 17:55 Pulse Ox 98 10/20/17 17:55 Constitutional: Present: Alert, Oriented x3, Cooperative, No distress, Middle aged, Morbidly obese ENT Exam: Present: hearing grossly normal Eye Exam: bilateral eye: normal inspection Neck: Present: full range of motion Back Exam: Present: normal inspection Breasts: Present: Exam deferred Respiratory: Present: chest non-tender, lungs clear, normal breath sounds, no respiratory distress, decreased breath sounds Cardiovascular/Chest: Present: normal peripheral pulses, regular rate, rhythm, no chest tenderness, edema Peripheral Pulses: dorsalis-pedis (R): 2+, dorsalis-pedis (L): 2+ Abdomen: Present: Normal bowel sounds, soft, nontender, nondistended /Rectal: Present: Exam deferred Extremity: Present: normal range of motion, no calf tenderness, normal capillary refill, lower extremity edema, pedal edema, other Skin Exam: Present: other - venous stasis, cellulitis, blisteres broken and some intact Neurologic: Present: normal mood/affect, oriented x 3 Appearance: Present: appropriate appearance, appropriate insight Eye contact: Present: cooperative, good eye contact Thoughts: Present: normal thought pattern, flight of ideas Diagnostic Studies: Abnormal Lab Results 10/20/17 10/20/17 10/20/17 Range/Units 14:40 14:40 14:40 RBC 3.53 L (4.7-6.0) M/mm3 Hgb 10.4 L (13.5-18.0) gm/dL Hct 31.7 L (42.0-52.0) % RDW 15.5 H (11.5-14.0) % Plt Count 108 L (150-450) K/mm3 Eosinophils % 3.4 H (0.0-3.0) % Lymphocytes # 1.46 L (1.5-3.5) k/mm3 Carbon Dioxide 22.9 L (24-32.6) mmol/L Anion Gap 15.6 H (6.8-13.8) mmol/L BUN 52 H D (6-23) mg/dL Creatinine 3.95 H D (0.4-1.4) mg/dL Est GFR (Non-Af Amer) 16 L D (60-130) mL/min Random Glucose 224 H (70-110) mg/dL Ammonia 100.0 H (11-35) mcmol/L Total Protein 8.6 H (6.2-8.2) gm/dL Albumin 2.8 L (3.4-5.0) gm/dl Urine Protein (NEGATIVE) mg/dL Urine Glucose (UA) (NEGATIVE) mg/dL Urine Blood (NEGATIVE) /ul Urine Urobilinogen (NORMAL) EU/dl Urine RBC (0-5) /hpf 10/20/17 Range/Units 14:46 RBC (4.7-6.0) M/mm3 Hgb (13.5-18.0) gm/dL Hct (42.0-52.0) % RDW (11.5-14.0) % Plt Count (150-450) K/mm3 Eosinophils % (0.0-3.0) % Lymphocytes # (1.5-3.5) k/mm3 Carbon Dioxide (24-32.6) mmol/L Anion Gap (6.8-13.8) mmol/L BUN (6-23) mg/dL Creatinine (0.4-1.4) mg/dL Est GFR (Non-Af Amer) (60-130) mL/min Random Glucose (70-110) mg/dL Ammonia (11-35) mcmol/L Total Protein (6.2-8.2) gm/dL Albumin (3.4-5.0) gm/dl Urine Protein 30 H (NEGATIVE) mg/dL Urine Glucose (UA) 500 H (NEGATIVE) mg/dL Urine Blood 50 H (NEGATIVE) /ul Urine Urobilinogen 2.0 H (NORMAL) EU/dl Urine RBC 5-10 H (0-5) /hpf Laboratory Results WBC 6.2 K/mm3 (4.0-10.5) 10/20/17 14:40 RBC 3.53 M/mm3 (4.7-6.0) L 10/20/17 14:40 Hgb 10.4 gm/dL (13.5-18.0) L 10/20/17 14:40 Hct 31.7 % (42.0-52.0) L 10/20/17 14:40 MCV 89.8 fl (78-100) 10/20/17 14:40 MCH 29.5 pg (27-31) 10/20/17 14:40 MCHC 32.8 g/dl (32-36) 10/20/17 14:40 RDW 15.5 % (11.5-14.0) H 10/20/17 14:40 Plt Count 108 K/mm3 (150-450) L 10/20/17 14:40 MPV 10.6 fl (8-11.3) 10/20/17 14:40 Immature Gran % (Auto) 0.20 % (0.001-0.429) 10/20/17 14:40 Immature Gran # (Auto) 0.01 K/mm3 (0.000-0.0310) 10/20/17 14:40 Neutrophils % 63.7 % (42-75.0) 10/20/17 14:40 Lymphocytes % 23.5 % (20-51) 10/20/17 14:40 Monocytes % 8.2 % (0.0-9) 10/20/17 14:40 Eosinophils % 3.4 % (0.0-3.0) H 10/20/17 14:40 Basophils % 1.0 % (0.0-1.0) 10/20/17 14:40 Nucleated RBC % 0.0 k/mm3 (0-1) 10/20/17 14:40 Neutrophils # 4.0 K/mm3 (1.3-6.0) 10/20/17 14:40 Lymphocytes # 1.46 k/mm3 (1.5-3.5) L 10/20/17 14:40 Monocytes # 0.5 k/mm3 (0.0-1.0) 10/20/17 14:40 Eosinophils # 0.2 k/mm3 (0.0-0.7) 10/20/17 14:40 Absolute Basophils 0.1 k/mm3 (0.0-0.1) 10/20/17 14:40 Sodium 137 mmol/L (132-142) 10/20/17 14:40 Plasma Sodium 139 mmol/L (130-142) 10/20/17 14:40 Potassium 4.5 mmol/L (3.4-4.6) 10/20/17 14:40 Chloride 103 mmol/L (97-106) 10/20/17 14:40 Carbon Dioxide 22.9 mmol/L (24-32.6) L 10/20/17 14:40 Anion Gap 15.6 mmol/L (6.8-13.8) H 10/20/17 14:40 BUN 52 mg/dL (6-23) H D 10/20/17 14:40 Creatinine 3.95 mg/dL (0.4-1.4) H D 10/20/17 14:40 Est GFR (Non-Af Amer) 16 mL/min (60-130) L D 10/20/17 14:40 BUN/Creatinine Ratio 13.2 (9.0-21.6) 10/20/17 14:40 Random Glucose 224 mg/dL (70-110) H 10/20/17 14:40 Calcium 8.8 mg/dL (7.9-10.9) 10/20/17 14:40 Calcium Adj for Albumin 9.4 mg/dL (8.4-10.2) 10/20/17 14:40 Total Bilirubin 1.0 mg/dL (0.0-1.1) 10/20/17 14:40 GGT 36 U/L (4-104) 10/20/17 14:40 AST 23 U/L (0-48) 10/20/17 14:40 ALT 23 U/L (19-67) 10/20/17 14:40 Alkaline Phosphatase 94 U/L (50-170) 10/20/17 14:40 Ammonia 100.0 mcmol/L (11-35) H 10/20/17 14:40 Total Protein 8.6 gm/dL (6.2-8.2) H 10/20/17 14:40 Albumin 2.8 gm/dl (3.4-5.0) L 10/20/17 14:40 Urine Color Yellow 10/20/17 14:46 Urine Appearance Clear (CLEAR) 10/20/17 14:46 Urine pH 5.5 pH (5.0-7.0) 10/20/17 14:46 Ur Specific [place] 1.020 SP.GR. (1.005-1.030) 10/20/17 14:46 Urine Protein 30 mg/dL (NEGATIVE) H 10/20/17 14:46 Urine Glucose (UA) 500 mg/dL (NEGATIVE) H 10/20/17 14:46 Urine Ketones Negative mg/dL (NEGATIVE) 10/20/17 14:46 Urine Blood 50 /ul (NEGATIVE) H 10/20/17 14:46 Urine Nitrate Negative (NEGATIVE) 10/20/17 14:46 Urine Bilirubin Negative mg/dl (NEGATIVE) 10/20/17 14:46 Prot Sulfosalicylic Acd 1+ mg/dL (0) 10/20/17 14:46 Urine Urobilinogen 2.0 EU/dl (NORMAL) H 10/20/17 14:46 Ur Leukocyte Esterase Negative /ul (NEGATIVE) 10/20/17 14:46 Urine RBC 5-10 /hpf (0-5) H 10/20/17 14:46 Urine WBC Trace /hpf (0-5) 10/20/17 14:46 Ur Epithelial Cells Trace /hpf (0-5) 10/20/17 14:46 Urine Bacteria None seen (NONE) 10/20/17 14:46 Urine Culture Comments No culture indicated 10/20/17 14:46 Urine Opiates Screen Negative (NEGATIVE) 10/20/17 14:46 Barbiturate Screen Negative (NEGATIVE) 10/20/17 14:46 Ur Phencyclidine Scrn Negative (NEGATIVE) 10/20/17 14:46 Urine Amphetamine Negative (NEGATIVE) 10/20/17 14:46 U Benzodiazepines Scrn Negative (NEGATIVE) 10/20/17 14:46 Urine Cocaine Screen Negative (NEGATIVE) 10/20/17 14:46 Urine Marijuana (THC) Negative (NEGATIVE) 10/20/17 14:46 Ethyl Alcohol 3.0 mg/dL (0.0-10.0) 10/20/17 14:40 Assessment/Plan - Narrative Narrative: Hepatic Encephalopathy Family reporting unexplained confusion and pt report not taking lactulose as prescribed with hx of hepatic encephalopathy On adm Ammonia level 100, previous adm it was 120 Neuro check Q shift Lactulose was initiated in ER will continue with scheduled doses. Since adm he had two bowel movements. Initiated Rafaximin 550mg QID Monitor Ammonia, Hepatitis panel,CMP, CBC, PT/PTT and stool occult pending UA noted Toxicology negative weight daily and strict I/O 12/05/2016 U/S liver :No significant hydronephrosis or evidence for obstruction , no renal mass or nephrolithiasis Cellulitis Bilateral lower extre with increased erythema and edema Continue with IV antibiotic Blood culture pending Diabetes Accu-check AC+HS Continue with Home dose of Insulin Hypertension- stable On adm BP 157/97 continue to monitor VS CKD stage 4 On adm Bun/ cre 52/3.95 similar to previous adm at baseline continue with IVF continue to monitor CMP and Strict I/O and weight pt daily Code status: Full GI ppx:Pepcid - Assessment/Plan (1) Hepatic encephalopathy Problem: Acute (2) Cellulitis Problem: Acute Qualifiers: Site of cellulitis: extremity Site of cellulitis of extremity: lower extremity (3) CKD (chronic kidney disease) Problem: Chronic Qualifiers: Chronic kidney disease stage: stage 4 (severe) Qualified Code(s): N18.4 - Chronic kidney disease, stage 4 (severe) (4) Diabetes Problem: Chronic Qualifiers: Diabetes mellitus type: type 2 Diabetes mellitus oil heaterman insulin use: with oil heaterman use Diabetes mellitus complication detail: with chronic kidney disease Chronic kidney disease stage: stage 4 (severe) (5) CAD (coronary artery disease) of artery bypass graft Problem: Chronic Qualifiers: [place] vs. transplanted heart: [place] heart Associated angina: without angina Qualified Code(s): I25.810 - Atherosclerosis of coronary artery bypass graft(s) without angina pectoris (6) Thrombocytopenia Problem: Chronic
[2017-10-20] MEDS ORDERED: METOPROLOL SUCCINATE 25 MG TABLET.SA PO SCH (21:00)
[2017-10-20] MEDS ORDERED: RIFAXIMIN 200 MG TABLET PO SCH (21:00)
[2017-10-20] MEDS ORDERED: METOPROLOL SUCCINATE 50 MG TABLET.SA PO ONE (21:21)
[2017-10-20] MEDS: levETIRAcetam 500 MG TABLET PO SCH (21:28)
[2017-10-21] MEDS: NORMAL SALINE 1,000 ML IV PRN ×2 (00:06→08:54)
[2017-10-21 05:16] LABS: Albumin * 2.7 gm/dl (3.4-5.0); Anion Gap 11.8 mmol/L (6.8-13.8); BUN/Creatinine Ratio 12.8 (9.0-21.6); Bilirubin, Total 0.8 mg/dL (0.0-1.1); Ca. Corrected For Albumin 9.3 mg/dL (8.4-10.2); Calcium * 8.6 mg/dL (7.9-10.9); Carbon Dioxide 24.4 mmol/L (24-32.6); Potassium 4.2 mmol/L (3.4-4.6); Total Protein 8.4 gm/dL (6.2-8.2)
[2017-10-21] MEDS: INSULIN ASPART 100 UNITS/ML VIAL SC SCH ×2 (08:04→11:13)
[2017-10-21] MEDS: levETIRAcetam 500 MG TABLET PO SCH (08:06)
[2017-10-21] MEDS: LACTULOSE 10 G/15 ML BTL PO SCH ×2 (08:06→14:00)
[2017-10-21] MEDS ORDERED: ATORVASTATIN CALCIUM 40 MG TABLET PO SCH (09:00)
[2017-10-21] MEDS ORDERED: CHOLECALCIFEROL 5,000 UNIT TABLET PO SCH (09:00)
[2017-10-21] MEDS ORDERED: INSULIN DEGLUDEC SQ SCH (09:00)
[2017-10-21] MEDS ORDERED: FAMOTIDINE 20 MG TABLET PO SCH (09:00)
[2017-10-21] MEDS ORDERED: LINAGLIPTIN 5 MG PO SCH (09:00)
--- NOTE | 2017-10-21 12:44 | CONS ---
[facility] - General Date of Service: 10/21/17 Source: patient, family - History of Present Illness Initial Comments: Patient is a 62 year old male, recently admitted to the hospital due to hepatic encephalopathy, cellulitis, diabetes, hypertension and stage IV kidney disease. This consult is regarding the open ulcers to bilateral lower extremities. He states that these have been present for several months. He does have chronic edema of bilateral lower extremities, and states that he has worn compression stockings in the past. He has not worn them recently. He states that the areas start as blisters and become open wounds. He has moderate pain associated with the areas. He denies any recent vascular procedures. Current treatment appears to be Mepilex borders. The patient does walk, and uses a cane for ambulation. Timing/Duration: changing over time Modifying Factors - (Improves): Reports: rest Associated Symptoms: denies symptoms Allergies/Adverse Reactions: Allergies amoxicillin [From Augmentin] Allergy (Severe, Verified 10/20/17 13:48) Swelling of Face clavulanic acid [From Augmentin] Allergy (Severe, Verified 10/20/17 13:48) Swelling of Face Home Medications: Home Medications Medication Instructions Recorded Last Taken Insulin Aspart [Novolog Flexpen] 30 unit SQ TID 12/04/16 12/04/16 17:00 Insulin Degludec [Tresiba 144 unit SQ DAILY 12/04/16 12/04/16 07:00 Flextouch U-100] Linagliptin [Tradjenta] 5 mg PO DAILY 12/04/16 12/04/16 08:00 Acetaminophen [Tylenol] 1,000 mg PO Q8H PRN tablet 12/06/16 Unknown Mupirocin [Bactroban] 1 appl TP BID #22 gm 12/06/16 Unknown levETIRAcetam [Keppra Xr] 500 mg PO BID 04/06/17 Unknown Atorvastatin Calcium [Lipitor] 40 mg PO DAILY #30 tablet 04/07/17 Unknown Cholecalciferol (Vitamin D3) 5,000 unit PO DAILY #30 tablet 04/07/17 Unknown [Vitamin D3] Lactulose [Enulose] 20 g PO TID #1 btl 04/07/17 Unknown Metoprolol Succinate 25 mg PO HS #30 tab.er.24h 04/07/17 Unknown Procedures Measurement of Arterial Saturation, Peripheral, Percutaneous Approach (12/04/16) Medications - Medications Current Medications: Current Medications Cholecalciferol (Vitamin D) 5,000 unit PO DAILY [facility] [place] Stop: 11/20/17 09:01 Last Admin: 10/21/17 08:06 Dose: 5,000 unit Famotidine (Pepcid) 20 mg PO DAILY KATY Stop: 11/20/17 09:01 Last Admin: 10/21/17 08:06 Dose: 20 mg Sodium Chloride (Sodium Chloride 0.9%) 1,000 mls @ 125 mls/hr IV .Q8H PRN PRN Reason: HYDRATION Stop: 11/19/17 23:48 Last Admin: 10/21/17 08:54 Dose: 125 mls/hr Lactulose (Enulose) 20 g PO TID KATY Stop: 11/20/17 09:01 Last Admin: 10/21/17 08:06 Dose: 20 g Levetiracetam (Keppra) 500 mg PO BID KATY Stop: 11/19/17 21:01 Last Admin: 10/21/17 08:06 Dose: 500 mg Metoprolol Succinate (Toprol Xl) 25 mg PO HS KATY Stop: 11/19/17 21:01 Last Admin: 10/20/17 21:30 Dose: 25 mg Review of Systems - Review of Systems Generalized/Overall Review: Absent: Fever EENTM: Absent: Nose Congestion Respiratory: Absent: Cough Cardiac: Present: Edema Abdominal: Absent: Nausea Musculoskeletal: Present: Joint Pain Skin: Present: Lesions Physical Examination - Exam Vital Signs: Vital Signs - Last Taken Temp 36.6 C 10/21/17 06:53 Pulse 66 10/21/17 06:53 Resp 18 10/21/17 06:53 BP 111/66 10/21/17 06:53 Pulse Ox 98 10/21/17 06:53 O2 Oxygen Delivery Method Room Air Constitutional: Present: Alert, Oriented x3, Cooperative ENT Exam: Present: hearing grossly normal Skin Exam: Present: warm/dry, other - there are two open areas on the right lower leg, measuring ~4cm in circumference. minimal drainage. erythema in bilateral lower extremities. the left lower leg has an area ~2cm in circumference. these appear to be open blisters, with good granulation tissue present. the legs are swollen and tight. pulses are difficult to obtain, however capillary refil is <3 seconds distally. - Results and Findings: Narrative: Recommend Acticoat 7 applied to open areas on bilateral lower extremities. This will be covered with Mepilex border. Two layers of tubigrip will be applied to the lower extremities, and the patient is encouraged to keep his legs elevated. The Acticoat 7 dressing will be changed at 7 days. The areas will be washed with soap and water at dressing changes. We would be happy to continue care at the [facility], if needed. Thank you for this consult. Lab/Microbiology results last 24 hrs: Abnormal/Pending Laboratory Last 24 HRS 10/21/17 10/21/17 10/20/17 04:40 04:20 14:46 RBC Hgb Hct RDW Plt Count Eosinophils % Lymphocytes # Chloride 108 H Carbon Dioxide Anion Gap BUN 47 H Creatinine 3.68 H Est GFR (Non-Af Amer) 18 L Random Glucose 114 H D Ammonia 70.0 H Total Protein 8.4 H Albumin 2.7 L Urine Protein 30 H Urine Glucose (UA) 500 H Urine Blood 50 H Urine Urobilinogen 2.0 H Urine RBC 5-10 H 10/20/17 10/20/17 10/20/17 14:40 14:40 14:40 RBC 3.53 L Hgb 10.4 L Hct 31.7 L RDW 15.5 H Plt Count 108 L Eosinophils % 3.4 H Lymphocytes # 1.46 L Chloride Carbon Dioxide 22.9 L Anion Gap 15.6 H BUN 52 H D Creatinine 3.95 H D Est GFR (Non-Af Amer) 16 L D Random Glucose 224 H Ammonia 100.0 H Total Protein 8.6 H Albumin 2.8 L Urine Protein Urine Glucose (UA) Urine Blood Urine Urobilinogen Urine RBC - Assessments/Findings (1) Bilateral leg ulcer Problem: Acute Qualifiers: Non-pressure ulcer stage: limited to breakdown of skin Qualified Code(s): L97.911 - Non-pressure chronic ulcer of unspecified part of right lower leg limited to breakdown of skin; L97.921 - Non-pressure chronic ulcer of unspecified part of left lower leg limited to breakdown of skin (2) Cellulitis Problem: Acute Qualifiers: Site of cellulitis: extremity Site of cellulitis of extremity: lower extremity Laterality: right Qualified Code(s): L03.115 - Cellulitis of right lower limb
--- NOTE | 2017-10-21 13:05 | DS ---
(1) Hepatic encephalopathy Problem: Acute (2) bilateral leg edema with ulcers. Problem: Chronic (3) Stage 4 chronic kidney disease Problem: Chronic (4) T2DM (type 2 diabetes mellitus) Diagnosis(s): with multiple complications. Problem: Chronic Qualifiers: Diabetes mellitus fdc insulin use: with terminal manager use (5) CAD (coronary artery disease) of artery bypass graft Diagnosis(s): S/P 4V - date unknown. Problem: Chronic Qualifiers: [place] vs. transplanted heart: [place] heart Associated angina: without angina Qualified Code(s): I25.810 - Atherosclerosis of coronary artery bypass graft(s) without angina pectoris (6) CKD (chronic kidney disease) Problem: Chronic Qualifiers: Chronic kidney disease stage: stage 4 (severe) Qualified Code(s): N18.4 - Chronic kidney disease, stage 4 (severe) Description of Stay: DATE OF ADMISSION: 10/20/17. DATE OF DISCHARGE: 10/21/17. DIAGNOSTICS: NONE. DISCHARGE SUMMARY: Luis Clifton is a 62-year-old WM with a history of HTN, T2 DM, HLD, CAD [CABG x 4V], LYLY[non-complaint], CKD stage IV, morbid obesity[ BMI - 58.0] was brought to the hospital because of increasing confusion which was worsening over the last few days and he also fell. The patient was noticed to have increasing edema in his lower extremities with ulcers. He he cut back on his lactulose to twice a day as he did not want to be in the bathroom all the time. He did not keep his appointments with his PCP as he did not sign for his Medicaid card. Had a history of hepatosplenomegaly for which he was evaluated at the [facility] and was felt to have cirrhosis. Workup had been negative. On admission, ammonia level 100 mcmol/L, BUN/CR 52/3.95, GFR 16 mL/min. patient was given IV fluids and lactulose with improvement in symptoms. BUN/CR at the time of discharge was 45/3.40, GFR 19 mL/m, ammonia level 35 mcmol/min.[10/21/17 at noon]. Wound consult was obtained: Acticoat 7 covered by Mepilex every 7 days and 2 layers of Tubigrip to be followed by wound clinic. Tubigrip to be taken off every night. Patient was recommended to have his feet elevated on a wedge at night and try using the CPAP for short periods of time. Discharged in a stable condition. Procedures Performed: none Results and Findings: Laboratory Tests 10/20/17 14:40 WBC 6.2 Hgb 10.4 L Hct 31.7 L Plt Count 108 L 10/20/17 10/21/17 10/21/17 14:40 04:20 13:11 Plasma Sodium 139 140 141 Potassium 4.5 4.2 4.4 Chloride 103 108 H 106 Carbon Dioxide 22.9 L 24.4 25.2 BUN 52 H D 47 H 45 H Creatinine 3.95 H D 3.68 H 3.40 H Est GFR 16 L D 18 L 19 L Random Glucose 224 H 114 H D 162 H D Total Protein 8.6 H 8.4 H 8.3 H Albumin 2.8 L 2.7 L 2.6 L AMMONIA 100.0 H 70.0 H 35.0 10/20/17 13:51 10/21/17 04:23 Weight 147.145 kg 144.9 kg Disposition: [facility] Home Health Agency: [facility] Home Health Condition: Undetermined Face to Face Encounter completed per [facility] Guidelines: Yes Discharge Activity: Activity as tolerated Discharge Diet: Consistent carbs - with protein Referrals: Patricia Zapata MD [Primary Care Provider] - Additional Patient Instructions (free text): Home Health new. Please fax orders and call report upon discharge. Nursing for wound cares and medication monitoring. Acticoat 7 applied to open areas on bilateral lower extremities. This will be covered with Mepilex border. Two layers of tubigrip will be applied to the lower extremities, and the patient is encouraged to keep his legs elevated. The Acticoat 7 dressing will be changed at 7 days. The areas will be washed with soap and water at dressing changes. -Please make TCM appointment unless half-way discharge. Thank you! Melissa @ [phone]. Restart all medications from 10/22/2017. Elevate her feet at night by using a wedge which is approximately 6 inches in height. Discussed with physician regarding CPAP/mask. Follow up with wound clinic -2 weeks. Appt with PCP ( Dr Kiser) in 1-2 weeks. Complete Home Medications List: Complete Home Medication List: Insulin Aspart [Novolog Flexpen] 30 unit SQ TID 08/19/17 Insulin Degludec [Tresiba Flextouch U-100] 144 unit SQ DAILY 12/04/16 Linagliptin [Tradjenta] 5 mg PO DAILY 12/04/16 Acetaminophen [Tylenol] 1,000 mg PO Q8H PRN tablet 12/06/16 levETIRAcetam [Keppra Xr] 500 mg PO BID 04/06/17 Atorvastatin Calcium [Lipitor] 40 mg PO DAILY #30 tablet 04/07/17 Cholecalciferol (Vitamin D3) [Vitamin D3] 5,000 unit PO DAILY #30 tablet Lactulose [Enulose] 20 g PO TID #1 btl 04/07/17 Metoprolol Succinate 25 mg PO HS #30 tab.er.24h 04/07/17
[2017-10-21] MEDS ORDERED: sitaGLIPtin PHOSPHATE 50 MG TABLET PO SCH (13:30)
[2017-10-21] MEDS ORDERED: INSULIN DETEMIR 100 UNITS/ML VIAL SC ONE (13:30)
[2017-10-21] MEDS ORDERED: RIFAXIMIN 200 MG TABLET PO SCH (13:30)
[2017-10-21 13:37] LABS: Albumin * 2.6 gm/dl (3.4-5.0); Anion Gap 13.2 mmol/L (6.8-13.8); BUN/Creatinine Ratio 13.2 (9.0-21.6); Bilirubin, Total 0.8 mg/dL (0.0-1.1); Ca. Corrected For Albumin 9.4 mg/dL (8.4-10.2); Calcium * 8.6 mg/dL (7.9-10.9); Carbon Dioxide 25.2 mmol/L (24-32.6); Potassium 4.4 mmol/L (3.4-4.6); Total Protein 8.3 gm/dL (6.2-8.2)
[2017-10-21] MEDS ORDERED: DIPHTH,PERTUSS(ACELL),TET VAC 0.5 ML VIAL IM ONE (13:45)
[2017-10-21 15:16] VITALS: BP 139/68
[2017-10-21] MEDS ORDERED: INSULIN ASPART 100 UNITS/ML VIAL SC SCH (17:00)
[2017-10-21] MEDS ORDERED: ROSUVASTATIN CALCIUM 20 MG TABLET PO SCH (21:00)
== END 2017-10-21 16:00 | disposition home health service (06) ==
LOC: MS 13:18 → ER 13:18 → MS 18:10
PROVIDERS: ADMIT Internal Medicine; ATTEND Internal Medicine
DX: D64.9 Anemia, unspecified
CPT/HCPCS: 36415; 80053; 80307; 80320; 81001; 82140; 82272; 82977; 85025; 87040; 90471; 90715; 96361; 96365; 96372; 99213; 99285; G0378; G0479; G0481

== ENCOUNTER 2018-03-10 05:28 | Observation (INO) | payer MEDICAID, MEDICARE ==
--- NOTE | 2018-03-10 06:05 | ERNOTE ---
Neuro HPI ER Record Date of Service: 03/10/18 Presenting Symptoms: confusion Time Seen by Provider: 03/10/18 06:00 Source: patient Immunizations: IMMUNIZATION HX Immunizations Up to Date Yes History of Influenza Vaccine No Hx Pneumococcal Vaccination No Allergies/Adverse Reactions: Allergies Allergy/AdvReac Type Severity Reaction Status Date / Time amoxicillin [From Augmentin] Allergy Severe Swelling Verified 03/10/18 05:38 of Face clavulanic acid Allergy Severe Swelling Verified 03/10/18 05:38 [From Augmentin] of Face Home Medications: HOME MEDICATIONS Atorvastatin Calcium [Lipitor] 40 mg PO DAILY #30 tab 04/07/17 [Last Taken Unknown] Cholecalciferol (Vitamin D3) [Vitamin D3] 5,000 unit PO DAILY #30 tab 04/07/17 [Last Taken Unknown] albuterol sulfate HFA 90 mcg/actuation aerosol inhaler 1 puff IH Q6H PRN 10/24/17 [Last Taken Unknown] clopidogrel 75 mg tablet 75 mg PO DAILY 10/24/17 [Last Taken Unknown] levetiracetam 250 mg tablet 125 mg PO DAILY tab 10/24/17 [Last Taken Unknown] lisinopril 5 mg tablet 5 mg PO DAILY 10/24/17 [Last Taken Unknown] lactulose 10 gram/15 mL oral solution 20 g PO TID #1892 ml 11/09/17 [Last Taken Unknown] metoprolol succinate ER 25 mg tablet,extended release 24 hr 25 mg PO HS #30 tab.er.24h 02/23/18 [Last Taken Unknown] Furosemide [Lasix] 80 mg PO DAILY 03/10/18 [Last Taken Unknown] Insulin Aspart [Novolog Flexpen] 30 unit SQ TID 03/10/18 [Last Taken Unknown] Insulin Degludec [Tresiba Flextouch U-100] 144 unit SQ DAILY 03/10/18 [Last Taken Unknown] - History of Present Illness Narrative: Patient is a 62-year-old gentleman with hepatic insufficiency presenting to the emergency room via EMS with what is described as altered mental status. Patient at baseline due to take lactulose for his hepatic insufficiency apparently he missed a dose yesterday and at some point yesterday and today was Noted to be more confused than normal. Apparently his called the ambulance to bring him to the emergency room to be evaluated. He denies any symptoms such as headache, nausea, vomiting, dizziness, chest pain, diaphoresis, and urinary symptoms. - Character of Deficits Baseline Cognition: Present: alert, oriented x 4 Review of Systems - Review of Systems Constitutional: Present: no symptoms reported EYE: Present: no symptoms reported ENT: Present: no symptoms reported Respiratory: Present: no symptoms reported Cardiology: Present: no symptoms reported Gastrointestinal/Abdominal: Present: no symptoms reported Genitourinary: Present: no symptoms reported Musculoskeletal: Present: no symptoms reported Skin: Present: no symptoms reported Neurological: Present: See HPI Endocrine: Present: no symptoms reported Hematologic/Lymphatic: Present: no symptoms reported Psych: Present: no symptoms reported Medical History (Last Reviewed 03/10/18 @ 05:38 by Neli Pal RN) Sleep apnea (Chronic) Onset Date: Unknown Hyperlipidemia (Chronic) Onset Date: Unknown Hypertension (Chronic) Onset Date: Unknown Seizure (Chronic) Onset Date: Unknown Coronary artery disease (Chronic) Chronic kidney disease (Chronic) Onset Date: Unknown Diabetes Onset Date: Unknown Venous stasis Onset Date: Unknown Hepatosplenomegaly Onset Date: Unknown History of cellulitis Onset Date: Unknown Surgical History: Surgical History (Last Reviewed 03/10/18 @ 05:38 by Neli Pal RN) H/O colonoscopy Onset Date: Unknown approx. 2016 [facility]-normal H/O hernia repair Onset Date: Unknown abdominal. right inguinal w/mesh History of appendectomy Onset Date: Unknown Hx of CABG Onset Date: Unknown Johnny-quad Family History: Family History (Last Reviewed 03/10/18 @ 05:38 by Neli Pal RN) Father , age 88-prostate cancer Cancer prostate Brother Diabetes Cancer throat cancer Mother , age 72-emphysema Emphysema lung Brother Alive and well Sister Alive and well 3 sisters Social History: Preferred Language Citizen Of [place] Smoking Status Former smoker Abuse History No History of abuse Psych History No pertinent hx Alcohol Use none Drug Use none (Last Updated 02/07/18 @ 22:00 by Douglas Archuleta DO) No Social History Section defined Physical Exam - Physical Exam General Appearance: Present: wd/wn, alert, no apparent distress Head Exam: Present: normal inspection, no evidence of injury Eye Exam: Normal inspection: bilateral, PERRL: bilateral, EOMI: bilateral Neck: Present: normal inspection, nontender, supple Respiratory: Present: no respiratory distress, normal breath sounds, no accessory muscle use Cardiovascular/Chest: Present: regular rate, rhythm, no murmur, normal peripheral pulses Gastrointestinal/Abdominal: Present: normal bowel sounds, nontender, nondistended, soft Extremity Exam: Present: normal inspection, extremity edema Neurological Exam: Present: alert, oriented, electric motor fitter II-XII nml as tested Skin Exam: Present: normal color Lymphatic Exam: Present: no adenopathy Danial Coma Scale - Assess Motor: Abnormal Flexion Verbal: Oriented ED Progress - Results and Orders Patient's Lab Results:: I have reviewed the patient's lab results. - Vital Signs Patient's Vital Signs:: I have reviewed the patient's vital signs. Vital Signs: Vital Signs 03/10/18 05:33 03/10/18 05:50 Temperature 36.5 C Pulse Rate 70 66 Respiratory Rate 20 14 Blood Pressure 159/79 H 150/67 H O2 Sat by Pulse Oximetry 97 99 - Progress/Reassessment Chief Complaint: Altered Mental Status Progress:: Unchanged Progress Note-Subjective: 03/10/18 07:19 I discussed this patient with Dr. Feng who is her primary care physician. I also reviewed the labs with her. To be slightly anemic. BUN/creatinine is also elevated but compared to his prior labs essentially stable. His ammonia appear Elevated at 159. He indeed has diagnosis that is consistent hepatic encephalopathy/altered mental status secondary to hyperammonemia secondary to noncompliance with his lactulose. He can make documents to give him a dose of lactulose to send him home. However he is to have some difficulty returning home and his doesn't drive. The discussion with Dr. Feng we decided to observe him out of the hospital after receiving a dose of lactulose 30 mg by mouth 1 at the emergency room. The patient and his does need some teaching regarding being compliant with his lactulose. - Transfer of Care Expected Disposition: Admit Departure Clinical Impression: Acute alteration in mental status, Hepatic encephalopathy Chronic kidney disease Qualifiers: Chronic kidney disease stage: stage 4 (severe) Qualified Code(s): N18.4 - Chronic kidney disease, stage 4 (severe) - Departure Disposition: Home self-care Condition: Stable
[2018-03-10 06:17] LABS: Hematocrit 33.6 % (42.0-52.0); Hemoglobin 10.9 gm/dL (13.5-18.0); Mean Cell Volume 91.1 fl (78-100); Mean Corpuscular Hemoglobin 29.5 pg (27-31); Mean Corpuscular Hgb Conc 32.4 g/dl (32-36); Mean Platelet Volume 10.6 fl (8-11.3); Neutrophil # 3.7 K/mm3 (1.3-6.0); Platelet Count 112 K/mm3 (150-450); Red Blood Count 3.69 M/mm3 (4.7-6.0); Red Cell Distribution Width 14.8 % (11.5-14.0); White Blood Count 6.4 K/mm3 (4.0-10.5)
[2018-03-10 06:21] LABS: Urine Bilirubin Negative (NEGATIVE); Urine Blood 25 /ul (NEGATIVE); Urine Ketone Negative (NEGATIVE); Urine Nitrite Negative (NEGATIVE); Urine Protein 30 mg/dL (NEGATIVE); Urine Specific Gravity 1.025 SP.GR. (1.005-1.030); Urine Urobilinogen Normal (NORMAL)
[2018-03-10 06:35] LABS: Albumin * 2.7 gm/dl (3.4-5.0); Anion Gap 11.8 mmol/L (6.8-13.8); BUN/Creatinine Ratio 14.4 (9.0-21.6); Bilirubin, Total 0.7 mg/dL (0.0-1.1); Ca. Corrected For Albumin 9.7 mg/dL (8.4-10.2); Carbon Dioxide 27.7 mmol/L (24-32.6); Potassium 4.5 mmol/L (3.4-4.6); Total Protein 4.8 gm/dL (6.2-8.2)
[2018-03-10 06:41] LABS: Urine Color Yellow
[2018-03-10 06:42] LABS: Urine Appearance Clear (CLEAR); Urine Bacteria None Seen; Urine RBC None Seen /hpf (0-5); Urine WBC TRACE /hpf (0-5)
[2018-03-10] MEDS ORDERED: LACTULOSE 10 G/15 ML BTL PO ONE (07:45)
--- NOTE | 2018-03-10 08:20 | HP ---
Chief Complaint - Chief Complaint Date of Service: 03/10/18 Time of Service: 08:19 Chief Complaint: confusion, weakness History of Present Illness: Patient with PMHx of cirrhosis, DM, HTN, CKD, seizure disorder presented to the ED after feeling some confusion. He is prescribed lactulose three times a day, but he is unsure of his dose. He missed a couple doses yesterday because of the . He demonstrated some weakness also, and has been admitted for observation as it is felt he is not currently safe to go home, and has an increased fall risk. He had been going to the wound clinic until November for lower extremity ulcers, but he feels like they are healed. He does have localized swelling and erythema to the right eyelid, present for a couple of days. He denies CP, SOB, N/V/D, abdominal pain. No other symptoms. No family present during admission H&P. Medical History (Last Reviewed 03/10/18 @ 07:47 by Dale Beach RN) Sleep apnea (Chronic) Onset Date: Unknown Hyperlipidemia (Chronic) Onset Date: Unknown Hypertension (Chronic) Onset Date: Unknown Seizure (Chronic) Onset Date: Unknown Coronary artery disease (Chronic) Chronic kidney disease (Chronic) Onset Date: Unknown Diabetes Onset Date: Unknown Venous stasis Onset Date: Unknown Hepatosplenomegaly Onset Date: Unknown History of cellulitis Onset Date: Unknown Surgical History: Surgical History (Last Reviewed 03/10/18 @ 07:47 by Dale Beach RN) H/O colonoscopy Onset Date: Unknown approx. 2016 [facility]-normal H/O hernia repair Onset Date: Unknown abdominal. right inguinal w/mesh History of appendectomy Onset Date: Unknown Hx of CABG Onset Date: Unknown Johnny-quad Family History: Family History (Last Reviewed 03/10/18 @ 07:47 by Dale Beach RN) Father , age 88-prostate cancer Cancer prostate Brother Diabetes Cancer throat cancer Mother , age 72-emphysema Emphysema lung Brother Alive and well Sister Alive and well 3 sisters Social History: Patient Lives/Resources With Spouse Utilized Occupation Retired Preferred Language Brazilian Do you have any jehovah's witness or Yes: Pentcostal cultural preference? Smoking Status Former smoker Have you smoked in the past 12 No months Do you dip or chew tobacco No Abuse History No History of abuse Psych History No pertinent hx Alcohol Use none Drug Use none (Last Updated 02/07/18 @ 22:00 by Douglas Archuleta DO) No Social History Section defined Review Of Systems (GEN) - Review of Systems Generalized/Overall Review: Present: Weakness. Absent: Fever Respiratory: Absent: Cough, Shortness of Breath Cardiac: Present: Edema. Absent: Chest Pain, Syncope Abdominal: Absent: Nausea, Vomiting, Diarrhea Genitourinary: Absent: Dysuria Skin: Absent: Lesions Immunizations: IMMUNIZATION HX Immunizations Up to Date Yes History of Influenza Vaccine No Hx Pneumococcal Vaccination No Allergies/Adverse Reactions: Allergies Allergy/AdvReac Type Severity Reaction Status Date / Time amoxicillin [From Augmentin] Allergy Severe Swelling Verified 03/10/18 05:38 of Face clavulanic acid Allergy Severe Swelling Verified 03/10/18 05:38 [From Augmentin] of Face Home Medications: HOME MEDICATIONS Atorvastatin Calcium [Lipitor] 40 mg PO DAILY #30 tab 04/07/17 [Last Taken Unknown] Cholecalciferol (Vitamin D3) [Vitamin D3] 5,000 unit PO DAILY #30 tab 04/07/17 [Last Taken Unknown] albuterol sulfate HFA 90 mcg/actuation aerosol inhaler 1 puff IH Q6H PRN 10/24/17 [Last Taken Unknown] clopidogrel 75 mg tablet 75 mg PO DAILY 10/24/17 [Last Taken Unknown] levetiracetam 250 mg tablet 125 mg PO DAILY tab 10/24/17 [Last Taken Unknown] lisinopril 5 mg tablet 5 mg PO DAILY 10/24/17 [Last Taken Unknown] lactulose 10 gram/15 mL oral solution 20 g PO TID #1892 ml 11/09/17 [Last Taken Unknown] metoprolol succinate ER 25 mg tablet,extended release 24 hr 25 mg PO HS #30 tab.er.24h 02/23/18 [Last Taken Unknown] Furosemide [Lasix] 80 mg PO DAILY 03/10/18 [Last Taken Unknown] Insulin Aspart [Novolog Flexpen] 30 unit SQ TID 03/10/18 [Last Taken Unknown] Insulin Degludec [Tresiba Flextouch U-100] 144 unit SQ DAILY 03/10/18 [Last Taken Unknown] Exam - Exam Vital Signs: Vital Signs - Last Taken Temp 36.0 C 03/10/18 07:48 Pulse 70 03/10/18 07:48 Resp 16 03/10/18 07:48 BP 150/70 H 03/10/18 07:48 Pulse Ox 98 03/10/18 07:48 Constitutional: Present: Cooperative, No distress, Morbidly obese Eye Exam: right eye: other - localized swelling and erythema of right eyelid Neck: Absent: lymphadenopathy (R), lymphadenopathy (L) Respiratory: Present: lungs clear, no respiratory distress. Absent: rhonchi, wheezing Cardiovascular/Chest: Present: regular rate, rhythm Abdomen: Present: Normal bowel sounds, soft, nontender, nondistended, obese Extremity: Present: lower extremity edema - 2+ bilaterally to the knee Skin Exam: Present: other - venous stasis changes of bilateral lower legs, scaly skin. 1 cm stage II ulcer of right lateral lower leg. Superficial 1 cm abrasion of left posterior lower leg Neurologic: Present: other - light touch sensation intact to bilateral plantar feet Eye contact: Present: decreased rate of speech Diagnostic Studies: Abnormal Lab Results 03/10/18 03/10/18 03/10/18 Range/Units 06:13 06:13 06:13 RBC 3.69 L (4.7-6.0) M/mm3 Hgb 10.9 L (13.5-18.0) gm/dL Hct 33.6 L (42.0-52.0) % RDW 14.8 H (11.5-14.0) % Plt Count 112 L (150-450) K/mm3 Monocytes % 10.3 H (0.0-9) % Eosinophils % 7.5 H (0.0-3.0) % Basophils % 1.1 H (0.0-1.0) % Plasma Sodium 143 H (130-142) mmol/L Chloride 107 H (97-106) mmol/L BUN 51 H (6-23) mg/dL Creatinine 3.53 H (0.4-1.4) mg/dL Est GFR (Non-Af Amer) 19 L (60-130) mL/min Random Glucose 177 H (70-110) mg/dL Ammonia 159.0 H (11-35) mcmol/L Total Protein 4.8 L (6.2-8.2) gm/dL Albumin 2.7 L (3.4-5.0) gm/dl Urine Protein (NEGATIVE) mg/dL Urine Glucose (UA) (NEGATIVE) mg/dL Urine Blood (NEGATIVE) /ul 03/10/18 Range/Units 06:17 RBC (4.7-6.0) M/mm3 Hgb (13.5-18.0) gm/dL Hct (42.0-52.0) % RDW (11.5-14.0) % Plt Count (150-450) K/mm3 Monocytes % (0.0-9) % Eosinophils % (0.0-3.0) % Basophils % (0.0-1.0) % Plasma Sodium (130-142) mmol/L Chloride (97-106) mmol/L BUN (6-23) mg/dL Creatinine (0.4-1.4) mg/dL Est GFR (Non-Af Amer) (60-130) mL/min Random Glucose (70-110) mg/dL Ammonia (11-35) mcmol/L Total Protein (6.2-8.2) gm/dL Albumin (3.4-5.0) gm/dl Urine Protein 30 H (NEGATIVE) mg/dL Urine Glucose (UA) 250 H (NEGATIVE) mg/dL Urine Blood 25 H (NEGATIVE) /ul Laboratory Results WBC 6.4 K/mm3 (4.0-10.5) 03/10/18 06:13 RBC 3.69 M/mm3 (4.7-6.0) L 03/10/18 06:13 Hgb 10.9 gm/dL (13.5-18.0) L 03/10/18 06:13 Hct 33.6 % (42.0-52.0) L 03/10/18 06:13 MCV 91.1 fl (78-100) 03/10/18 06:13 MCH 29.5 pg (27-31) 03/10/18 06:13 MCHC 32.4 g/dl (32-36) 03/10/18 06:13 RDW 14.8 % (11.5-14.0) H 03/10/18 06:13 Plt Count 112 K/mm3 (150-450) L 03/10/18 06:13 MPV 10.6 fl (8-11.3) 03/10/18 06:13 Immature Gran % (Auto) 0.30 % (0.001-0.429) 03/10/18 06:13 Immature Gran # (Auto) 0.02 K/mm3 (0.000-0.0310) 03/10/18 06:13 Neutrophils % 57.0 % (42-75.0) 03/10/18 06:13 Lymphocytes % 23.8 % (20-51) 03/10/18 06:13 Monocytes % 10.3 % (0.0-9) H 03/10/18 06:13 Eosinophils % 7.5 % (0.0-3.0) H 03/10/18 06:13 Basophils % 1.1 % (0.0-1.0) H 03/10/18 06:13 Nucleated RBC % 0.0 k/mm3 (0-1) 03/10/18 06:13 Neutrophils # 3.7 K/mm3 (1.3-6.0) 03/10/18 06:13 Lymphocytes # 1.52 k/mm3 (1.5-3.5) 03/10/18 06:13 Monocytes # 0.7 k/mm3 (0.0-1.0) 03/10/18 06:13 Eosinophils # 0.5 k/mm3 (0.0-0.7) 03/10/18 06:13 Absolute Basophils 0.1 k/mm3 (0.0-0.1) 03/10/18 06:13 Sodium 142 mmol/L (132-142) 03/10/18 06:13 Plasma Sodium 143 mmol/L (130-142) H 03/10/18 06:13 Potassium 4.5 mmol/L (3.4-4.6) 03/10/18 06:13 Chloride 107 mmol/L (97-106) H 03/10/18 06:13 Carbon Dioxide 27.7 mmol/L (24-32.6) 03/10/18 06:13 Anion Gap 11.8 mmol/L (6.8-13.8) 03/10/18 06:13 BUN 51 mg/dL (6-23) H 03/10/18 06:13 Creatinine 3.53 mg/dL (0.4-1.4) H 03/10/18 06:13 Est GFR (Non-Af Amer) 19 mL/min (60-130) L 03/10/18 06:13 BUN/Creatinine Ratio 14.4 (9.0-21.6) 03/10/18 06:13 Random Glucose 177 mg/dL (70-110) H 03/10/18 06:13 Calcium 9.0 mg/dL (7.9-10.9) 03/10/18 06:13 Calcium Adj for Albumin 9.7 mg/dL (8.4-10.2) 03/10/18 06:13 Total Bilirubin 0.7 mg/dL (0.0-1.1) 03/10/18 06:13 AST 24 U/L (0-48) 03/10/18 06:13 ALT 24 U/L (19-67) 03/10/18 06:13 Alkaline Phosphatase 141 U/L (50-170) 03/10/18 06:13 Ammonia 159.0 mcmol/L (11-35) H 03/10/18 06:13 Total Protein 4.8 gm/dL (6.2-8.2) L 03/10/18 06:13 Albumin 2.7 gm/dl (3.4-5.0) L 03/10/18 06:13 Urine Color Yellow 03/10/18 06:17 Urine Appearance Clear (CLEAR) 03/10/18 06:17 Urine pH 6.0 pH (5.0-7.0) 03/10/18 06:17 Ur Specific [place] 1.025 SP.GR. (1.005-1.030) 03/10/18 06:17 Urine Protein 30 mg/dL (NEGATIVE) H 03/10/18 06:17 Urine Glucose (UA) 250 mg/dL (NEGATIVE) H 03/10/18 06:17 Urine Ketones Negative mg/dL (NEGATIVE) 03/10/18 06:17 Urine Blood 25 /ul (NEGATIVE) H 03/10/18 06:17 Urine Nitrate Negative (NEGATIVE) 03/10/18 06:17 Urine Bilirubin Negative mg/dl (NEGATIVE) 03/10/18 06:17 Prot Sulfosalicylic Acd 1+ mg/dL (0) 03/10/18 06:17 Urine Urobilinogen Normal EU/dl (NORMAL) 03/10/18 06:17 Ur Leukocyte Esterase Negative /ul (NEGATIVE) 03/10/18 06:17 Urine RBC None seen /hpf (0-5) 03/10/18 06:17 Urine WBC Trace /hpf (0-5) 03/10/18 06:17 Ur Epithelial Cells None seen /hpf (0-5) 03/10/18 06:17 Urine Bacteria None seen (NONE) 03/10/18 06:17 Urine Culture Comments No culture indicated 03/10/18 06:17 Assessment/Plan - Assessment/Plan (1) Hyperammonemia Assessment: Will administer 30 g lactulose tid. His home dose is 20 mg tid. Reassess this afternoon for improvement, and may DC home today if he feels comfortable. 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 Problem: Chronic (8) Hypertension Assessment: Continue home lisinopril. Problem: Chronic (9) Seizure Assessment: Continue home keppra. Problem: Chronic (10) Hordeolum externum right upper eyelid Assessment: Apply warm compress tid. Likely self limited. Problem: Acute (11) Bilateral leg ulcer Assessment: Stage II on his right lower leg, small superficial abrasion of his left that could develop into an ulcer. Will apply mupirocin ointment and a bandage to his right leg today, and schedule with the wound clinic after discharge in an attempt to keep them from developing into more severe ulcers. Problem: Acute Qualifiers: Non-pressure ulcer stage: limited to breakdown of skin Qualified Code(s): L97.911 - Non-pressure chronic ulcer of unspecified part of right lower leg limited to breakdown of skin; L97.921 - Non-pressure chronic ulcer of unspecified part of left lower leg limited to breakdown of skin
[2018-03-10] MEDS ORDERED: ALBUTEROL SULFATE 2.5 MG/0.5 ML VIAL.NEB IH PRN (12:28)
[2018-03-10] MEDS ORDERED: Insulin Degludec [Tresiba Flextouch U-100] SQ SCH (12:30)
[2018-03-10] MEDS: levETIRAcetam 500 MG TABLET PO SCH (14:10)
[2018-03-10] MEDS: FUROSEMIDE 80 MG TABLET PO SCH (14:10)
[2018-03-10] MEDS: LISINOPRIL 5 MG TABLET PO SCH (14:11)
[2018-03-10] MEDS: LACTULOSE 10 G/15 ML BTL PO SCH ×2 (16:36→19:08)
[2018-03-10] MEDS ORDERED: LACTULOSE 10 G/15 ML BTL PO SCH (17:00)
[2018-03-10] MEDS: INSULIN ASPART 100 UNITS/ML VIAL SC SCH (18:04)
[2018-03-10] MEDS ORDERED: NORMAL SALINE 1,000 ML IV ONE (18:05)
[2018-03-10] MEDS ORDERED: ONDANSETRON HCL/PF 2 MG/ML VIAL IV PRN (18:06)
[2018-03-10] MEDS ORDERED: METOPROLOL SUCCINATE 25 MG TABLET.SA PO SCH (21:00)
[2018-03-11] MEDS ORDERED: POLYETHYLENE GLYCOL 3350 119 GM BTL PO ONE (06:30)
[2018-03-11] MEDS: INSULIN ASPART 100 UNITS/ML VIAL SC SCH ×2 (07:09→11:44)
[2018-03-11] MEDS: LISINOPRIL 5 MG TABLET PO SCH (08:44)
[2018-03-11] MEDS: levETIRAcetam 500 MG TABLET PO SCH (08:44)
[2018-03-11] MEDS: FUROSEMIDE 80 MG TABLET PO SCH (08:51)
--- NOTE | 2018-03-11 08:56 | PN ---
Progess Note - Interim Date: 03/11/18 Time: 08:43 Narrative: 03/11/18 08:43 Patient's mentation not significantly changed from yesterday. Only received 2 doses of lactulose due to nausea and one episode of vomiting. Received one L NS overnight for decreased po intake. PT worked with him, and recommended home with home health. His asked for a mobility chair. Outpatient appointment will be arranged after discharge. Vitals: BP 133/65, HR 73, RR 16, O2 95% on roomair PE: Gen: Alert, oriented to day of week but not month CV: HRRR Resp: No increased effort, CTAB Abdomen: Soft, obese, nontender Neuro: Asterixis Skin: Crusty drainage of right eye, localized swelling and erythema Hepatic Encephalopathy: Did not receive extra doses of lactulose yesterday due to nausea. Has not yet had a BM. Will add miralax, and increase lactulose dose to 30 mg q3h. Encourage fluids. MELD score of 19. 03/11/18 08:45 03/11/18 08:46 03/11/18 08:46 03/11/18 08:56
[2018-03-11] MEDS ORDERED: CLOPIDOGREL BISULFATE 75 MG TABLET PO SCH (09:00)
[2018-03-11] MEDS: LACTULOSE 10 G/15 ML BTL PO SCH ×3 (09:02→14:37)
[2018-03-11 14:50] VITALS: BP 143/63
--- NOTE | 2018-03-11 15:06 | DS ---
(1) Hyperammonemia Problem: Resolved (2) Hepatic encephalopathy Problem: Resolved (3) Cirrhosis Problem: Chronic Qualifiers: Hepatic cirrhosis type: unspecified hepatic cirrhosis Ascites presence: without ascites Qualified Code(s): K74.60 - Unspecified cirrhosis of liver (4) Venous stasis dermatitis of both lower extremities Problem: Chronic (5) Morbid obesity Problem: Chronic (6) T2DM (type 2 diabetes mellitus) Problem: Chronic Qualifiers: Diabetes mellitus [facility] insulin use: with [facility] use (7) Stage 4 chronic kidney disease Problem: Chronic (8) Hypertension Problem: Chronic (9) Seizure Problem: Chronic (10) Hordeolum externum right upper eyelid Problem: Acute (11) Bilateral leg ulcer Problem: Chronic Qualifiers: Non-pressure ulcer stage: limited to breakdown of skin Qualified Code(s): L97.911 - Non-pressure chronic ulcer of unspecified part of right lower leg limited to breakdown of skin; L97.921 - Non-pressure chronic ulcer of un specified part of left lower leg limited to breakdown of skin Description of Stay: Patient with PMHx of cirrhosis, Stage IV renal failure, CM, HTN, seizure disorder presented to the ED with confusion. He has been prescribed 20 mg lactulose tid for about a year, but missed a couple of doses due to the . His ammonia level was 159. Otherwise, he did not have significant lab abnormalities. His creatinine was 3.53, which is his baseline. K+ normal at 4.5. No signs of infection, and he denied having constipation prior to admission. No seizure activity observed, and no significant findings on physical exam. He has chronic venous stasis changes of his bilateral lower legs, and one small 1 cm stage II ulcer of his right lateral lower leg. His lactulose dose was increased to 30 tid, but missed a dose the day of admission due to nausea. His confusion improved even prior to having bowel movements. He was discharged the day following admission. He and his agree to increase his dose to 30 mg tid, and adding miralax to his bowel regimen. He sees a business process lead in [place] for his renal failure. They have discussed the possibility of having a transplant. Chart review shows he was to have a sleep study earlier this year, which has not been done. He had a CPAP years ago, but the machine is outdated, and they do not have all the parts. Extensive discussion with him and his family reveal they were not aware he carries a diagnosis of cirrhosis. They did not know he was to be following with the paste mixer liquid in regularly. Will get a follow up appointment scheduled in [place]. They deny history of significant alcohol use. His prior physician was Dr. Zapata, and she recommended he continue to see an performance test engineer, and he would like to pursue this. He uses a walker at home, and his reports he has been having increased falls, and would like to see if he qualifies for a power chair. Will schedule mobility exam after discharge. She would also like to see if he can have pool therapy, and home health services. With his multiple serious comorbidities, this was deemed appropriate. His does not feel phys ically capable of fully caring for all his needs at home. Procedures Performed: none Results and Findings: Lab Pending Results 03/10/18 06:13: WBC 6.4, RBC 3.69 L, Hgb 10.9 L, Hct 33.6 L, MCV 91.1, MCH 29.5, MCHC 32.4, RDW 14.8 H, Plt Count 112 L, MPV 10.6, Immature Gran % (Auto) 0.30, Immature Gran # (Auto) 0.02, Neutrophils % 57.0, Lymphocytes % 23.8, Monocytes % 10.3 H, Eosinophils % 7.5 H, Basophils % 1.1 H, Nucleated RBC % 0.0, Neutrophils # 3.7, Lymphocytes # 1.52, Monocytes # 0.7, Eosinophils # 0.5, Absolute Basophils 0.1 03/10/18 06:13: Sodium 142, Plasma Sodium 143 H, Potassium 4.5, Chloride 107 H, Carbon Dioxide 27.7, Anion Gap 11.8, BUN 51 H, Creatinine 3.53 H, Est GFR (Non-Af Amer) 19 L, BUN/Creatinine Ratio 14.4, Random Glucose 177 H, Calcium 9.0, Calcium Adj for Albumin 9.7, Total Bilirubin 0.7, AST 24, ALT 24, Alkaline Phosphatase 141, Total Protein 4.8 L, Albumin 2.7 L 03/10/18 06:13: Ammonia 159.0 H 03/10/18 06:17: Urine Color Yellow, Urine Appearance Clear, Urine pH 6.0, Ur Specific [place] 1.025, Urine Protein 30 H, Urine Glucose (UA) 250 H, Urine Ketones Negative, Urine Blood 25 H, Urine Nitrate Negative, Urine Bilirubin Negative, Prot Sulfosalicylic Acd 1+, Urine Urobilinogen Normal, Ur Leukocyte Esterase Negative, Urine RBC None seen, Urine WBC Trace, Ur Epithelial Cells None seen, Urine Bacteria None seen, Urine Culture Comments No culture indicated Discharge Location: Home Disposition: [facility] Health Agency: [facility] Home Health Condition: Fair Face to Face Encounter completed per [facility] Guidelines: Yes - Luis Clifton is confin Discharge Activity: Activity as tolerated Discharge Diet: Consistent carbs Referrals: Mercy Feng DO [Primary Care Provider] - China Munoz MD [Staff Physician] - Additional Patient Instructions (free text): Please schedule a Mobility Assessment at discharge. This will need to be a 1 hour appointment. Face to Face Encounter: Luis Clifton is largely confined to the home secondary to Stage IV renal failure, cirrhosis, reduced mobility, increased falls. He has had multiple admissions that may have been secondary to taking medications inaccurately. Would benefit from PT and OT. snf needed includes medication management. Therapy is needed for strengthening, balance issues, decreased mobility. Hepatology Appointment: Please schedule an appointment with Dr. Wil Gonsalez and of [facility], . Complete Home Medications List: Complete Home Medication List: Atorvastatin Calcium [Lipitor] 40 mg PO DAILY #30 tab 04/07/17 Cholecalciferol (Vitamin D3) [Vitamin D3] 5,000 unit PO DAILY #30 tab 04/07/17 albuterol sulfate HFA 90 mcg/actuation aerosol inhaler 1 puff IH Q6H PRN 10/24/17 clopidogrel 75 mg tablet 75 mg PO DAILY 10/24/17 levetiracetam 250 mg tablet 125 mg PO DAILY tab 10/24/17 lisinopril 5 mg tablet 5 mg PO DAILY 10/24/17 lactulose 10 gram/15 mL oral solution 20 g PO TID #1892 ml 11/09/17 metoprolol succinate ER 25 mg tablet,extended release 24 hr 25 mg PO HS #30 tab.er.24h 02/23/18 Furosemide [Lasix] 80 mg PO DAILY 03/10/18 Insulin Aspart [Novolog Flexpen] 30 unit SQ TID 03/10/18 Insulin Degludec [Tresiba Flextouch U-100] 144 unit SQ DAILY 03/10/18 Insulin Degludec [Tresiba Flextouch U-100] 144 unit SQ DAILY 03/10/18 Lactulose [Enulose] 30 ml PO TID #900 ml 03/11/18 Amb Orders for Discharge: Sleep Study w\ Titration Time Frame: 1 Month, Location: Sleep Lab US Abd Single Organ (Limited) Time Frame: 2 Weeks, Location: Radiology
== END 2018-03-11 16:15 | disposition home health service (06) ==
LOC: MS 05:28 → ER 05:28 → MS 07:30
PROVIDERS: ADMIT Family Medicine; ATTEND Family Medicine
CPT/HCPCS: 36415; 80053; 81001; 82140; 85025; 90686; 96360; 96361; 96372; 97161; 97530; 99284; G0008; G0378; G8978; G8979; G8980

== ENCOUNTER 2018-04-27 07:57 | Inpatient (IN) ==
--- NOTE | 2018-04-27 08:17 | ERNOTE ---
Neuro HPI ER Record Presenting Symptoms: confusion Time Seen by Provider: 04/27/18 08:04 Source: EMS Exam Limitations: clinical condition Immunizations: IMMUNIZATION HX Immunizations Up to Date Yes History of Influenza Vaccine Yes Hx Pneumococcal Vaccination More Information Required Allergies/Adverse Reactions: Allergies Allergy/AdvReac Type Severity Reaction Status Date / Time amoxicillin [From Augmentin] Allergy Severe Swelling Verified 04/27/18 13:04 of Face clavulanic acid Allergy Severe Swelling Verified 04/27/18 13:04 [From Augmentin] of Face Home Medications: HOME MEDICATIONS Atorvastatin Calcium [Lipitor] 40 mg PO DAILY #30 tab 04/07/17 [Last Taken 03/09/18] Cholecalciferol (Vitamin D3) [Vitamin D3] 5,000 unit PO DAILY #30 tab 04/07/17 [Last Taken 03/09/18] albuterol sulfate HFA 90 mcg/actuation aerosol inhaler 1 puff IH Q6H PRN 10/24/17 [Last Taken Unknown] clopidogrel 75 mg tablet 75 mg PO DAILY 10/24/17 [Last Taken 03/09/18] levetiracetam 250 mg tablet 125 mg PO DAILY tab 10/24/17 [Last Taken 03/09/18] lisinopril 5 mg tablet 5 mg PO DAILY 10/24/17 [Last Taken 03/09/18] metoprolol succinate ER 25 mg tablet,extended release 24 hr 25 mg PO HS #30 tab.er.24h 02/23/18 [Last Taken 03/09/18] Furosemide [Lasix] 80 mg PO DAILY 03/10/18 [Last Taken 03/09/18] Insulin Aspart [Novolog Flexpen] 30 unit SQ TID 03/10/18 [Last Taken 03/09/18] Insulin Degludec [Tresiba Flextouch U-100] 144 unit SQ DAILY 03/10/18 [Last Taken 03/09/18] Insulin Degludec [Tresiba Flextouch U-100] 144 unit SQ DAILY 03/10/18 [Last Taken Unknown] Lactulose [Enulose] 30 ml PO TID #900 ml 03/11/18 [Last Taken Unknown] C-PAP See Dose Instructions .ROUTE .MEDSUPPLY #1 ea 04/07/18 [Last Taken Unknown] blood sugar diagnostic strips See Dose Instructions .ROUTE .MEDSUPPLY #10 ea 04/07/18 [Last Taken Unknown] blood-glucose meter kit See Dose Instructions .ROUTE .MEDSUPPLY #1 ea 04/07/18 [Last Taken Unknown] - History of Present Illness Narrative: Patient is here for confusion. He has a history of liver cirrhosis and has had similar episodes with high ammonia levels. EMS reports that family reports that he has been taking his medications as prescribed but is more confused today. Patient is unable to give history - Character of Deficits Baseline Cognition: Present: alert, oriented x 4 Prior Treament: Reports: similar symptoms before Review of Systems - Narrative Narrative: unable to obtain Medical History (Last Reviewed 04/27/18 @ 08:15 by Rosaura Hamm MD) Sleep apnea (Chronic) Onset Date: Unknown Hyperlipidemia (Chronic) Onset Date: Unknown Hypertension (Chronic) Onset Date: Unknown Seizure (Chronic) Onset Date: Unknown Coronary artery disease (Chronic) Chronic kidney disease (Chronic) Onset Date: Unknown Cirrhosis Hyperammonemia Diabetes Onset Date: Unknown Venous stasis Onset Date: Unknown Hepatosplenomegaly Onset Date: Unknown History of cellulitis Onset Date: Unknown Surgical History: Surgical History (Last Reviewed 04/27/18 @ 13:04 by Jose Mitchell RN) H/O colonoscopy Onset Date: Unknown approx. 2016 [facility]-normal H/O hernia repair Onset Date: Unknown abdominal. right inguinal w/mesh History of appendectomy Onset Date: Unknown Hx of CABG Onset Date: Unknown Johnny-quad Family History: Family History (Last Reviewed 04/27/18 @ 13:04 by Jose Mitchell, RN) Father , age 88-prostate cancer Cancer prostate Brother Diabetes Cancer throat cancer Mother , age 72-emphysema Emphysema lung Brother Alive and well Sister Alive and well 3 sisters Social History: Preferred Language [place] Do you have any judaism or Unknown cultural preference? Smoking Status Smoker, status unknown Abuse History No History of abuse Psych History No pertinent hx (Last Updated 03/31/18 @ 12:52 by Mercy Feng DO) No Social History Section defined Physical Exam - Physical Exam General Appearance: Present: no apparent distress, lethargic, obese Head Exam: Present: normal inspection, no evidence of injury Eye Exam: Normal inspection: bilateral, PERRL: bilateral Respiratory: Present: no respiratory distress, normal breath sounds, no accessory muscle use, chest nontender, lungs clear, other - slightly increased rate Cardiovascular/Chest: Present: regular rate, rhythm, no murmur Gastrointestinal/Abdominal: Present: normal bowel sounds, nontender, nondistended, soft Extremity Exam: Present: normal except - - stasis dermatitis on both legs, some erythema (baseline per daughter in law), small open area, pedal edema Neurological Exam: Present: other - lethargic, grunts in response to questions, sqeezes hands when asked to Skin Exam: Present: normal color, warm/dry [place] Coma Scale - Assess Eye Opening: To Pain Motor: Obeys Commands Verbal: Incomprehensible - Total Coma Scale Total: 10 Progress - Results and Orders Patient's Lab Results:: I have reviewed the patient's lab results. - Vital Signs Patient's Vital Signs:: I have reviewed the patient's vital signs. Vital Signs: Vital Signs 04/27/18 07:57 Temperature 38.4 C H Pulse Rate 83 Respiratory Rate 25 H Blood Pressure 185/81 H O2 Sat by Pulse Oximetry 94 - EKG EKG: NSR, nonspecific ST T wave changes, other - poor quality EKG read: Interp. by me - X-Ray X-Ray #1 X-Ray: chest - 1. Hypoventilatory changes. Interpretation: Reviewed by me - Progress/Reassessment Chief Complaint: Altered Mental Status Progress Note-Subjective: 04/27/18 09:38 discussed test results with daughter in law, is not aware of h/o ascites patient meets SIRS criteria with WBC, temp, RR, but no clear focus found (consider early pneumonia not apparent on CXR) no history of ascites, will get ultrasound to check to ascites as that could be cause of infection before starting antibiotics 04/27/18 10:11 updated who is present now no ascites, will start rocephin 04/27/18 10:13 discussed with bobbi Dawson to acute admit 04/27/18 11:35 unable to insert NG tube (multiple attempts from multiple nurses) after discussion with Dr Bolden (surgery) discussed with Dr Dietz for flouro guided insertion 04/27/18 12:28 patient has NG , will transfer to floor and start lactulose Departure Clinical Impression: Altered awareness, transient, Venous stasis dermatitis of both lower extremities, Hyperammonemia, SIRS (systemic inflammatory response syndrome) CKD (chronic kidney disease) Qualifiers: Chronic kidney disease stage: unspecified stage Qualified Code(s): N18.9 - Chronic kidney disease, unspecified Cirrhosis Qualifiers: Hepatic cirrhosis type: unspecified hepatic cirrhosis Ascites presence: without ascites Qualified Code(s): K74.60 - Unspecified cirrhosis of liver - Departure Disposition: Still a patient Condition: Stable
[2018-04-27 08:43] LABS: Hematocrit 31.7 % (42.0-52.0); Hemoglobin 10.1 gm/dL (13.5-18.0); Mean Cell Volume 91.9 fl (78-100); Mean Corpuscular Hemoglobin 29.3 pg (27-31); Mean Corpuscular Hgb Conc 31.9 g/dl (32-36); Neutrophil # 9.9 K/mm3 (1.3-6.0); Neutrophil % 80.8 % (42-75.0); Platelet Count 108 K/mm3 (150-450); Red Blood Count 3.45 M/mm3 (4.7-6.0); Red Cell Distribution Width 14.8 % (11.5-14.0); White Blood Count 12.2 K/mm3 (4.0-10.5)
[2018-04-27 08:55] LABS: Albumin * 2.7 gm/dl (3.4-5.0); Anion Gap 13.8 mmol/L (6.8-13.8); Bilirubin, Total 0.8 mg/dL (0.0-1.1); CRP 1.9 mg/dL (0.0-0.9); Ca. Corrected For Albumin 9.6 mg/dL (8.4-10.2); Calcium * 8.9 mg/dL (7.9-10.9); Carbon Dioxide 26.5 mmol/L (24-32.6); Potassium 5.3 mmol/L (3.4-4.6); Total Protein 8.3 gm/dL (6.2-8.2)
[2018-04-27 09:02] LABS: Urine Bilirubin Negative (NEGATIVE); Urine Blood 250 /ul (NEGATIVE); Urine Ketone Negative (NEGATIVE); Urine Nitrite Negative (NEGATIVE); Urine Protein 100 mg/dL (NEGATIVE); Urine Urobilinogen Normal (NORMAL)
[2018-04-27 09:15] LABS: Urine Appearance Clear (CLEAR); Urine Bacteria None Seen; Urine Color Yellow; Urine WBC None Seen /hpf (0-5)
[2018-04-27 10:04] LABS: Prothrombin Time (Patient) 11.4 Seconds (9.0-11.0)
[2018-04-27 10:06] LABS: INR 1.14 INR (0.90-1.10); Partial Thrombolplastin Time 26.5 Seconds (24-32)
[2018-04-27] MEDS ORDERED: cefTRIAXone SODIUM 1,000 MG/100 ML BAG IV ONE (10:11)
[2018-04-27] MEDS ORDERED: TETRACAINE/BENZOCAINE/BUTAMBEN 20 SPRAY BTL TP PRN (11:00)
[2018-04-27] MEDS: LACTULOSE 10 G/15 ML BTL PO SCH ×2 (14:36→17:18)
[2018-04-27] MEDS ORDERED: ACETAMINOPHEN 325 MG TABLET NG PRN (18:00)
[2018-04-27] MEDS ORDERED: ALBUTEROL SULFATE 200 PUFF INHALER IH PRN (18:24)
[2018-04-27] MEDS ORDERED: CPAP SCH (18:30)
[2018-04-27] MEDS ORDERED: ALBUTEROL SULFATE 2.5 MG/0.5 ML VIAL.NEB IH SCH (18:45)
[2018-04-27] MEDS: ALBUTEROL SULFATE 2.5 MG/0.5 ML VIAL.NEB IH SCH ×2 (19:18→22:20)
[2018-04-27] MEDS ORDERED: NORMAL SALINE 1,000 ML IV ONE (19:25)
--- NOTE | 2018-04-27 19:28 | HP ---
Chief Complaint - Chief Complaint Date of Service: 04/27/18 Time of Service: 18:57 Chief Complaint: Patient is this oriented x3 and confused and nonverbal at the moment History of Present Illness: 63-year-old male with past medical history of liver cirrhosis, obstructive sleep apnea, hypertension, seizure disorder, coronary artery disease, old NE, chronic kidney disease, diabetes mellitus type 2, vitamin D deficiency, hyperlipidemia, and CHF was brought to IR due to worsening confusion and disorientation for the past several days. Patient's reports that since April 19, 2018 patient started struggling with confusion but in the last 2 days he got worse. Patient has been hospitalized multiple times for hyper ammonemia secondary to his liver cirrhosis. He is currently on multiple doses of lactulose at home and reports that he has been compliant with her lactulose but might have missed a dose a couple of days ago. Patient also has been experiencing episodes of fever and chills in the past few days but she denies cough or difficulty breathing. He is a very well-known patient at the wound clinic where he is treated for multiple ulcers in his lower extremities, however his reports that he has not been to the wound clinic to be treated in more than a month. Since then his lower extremities have been more erythematous, warm, and tender to palpation than usual. Medical History (Last Reviewed 04/27/18 @ 13:04 by Jose Mitchell RN) Sleep apnea (Chronic) Onset Date: Unknown Hyperlipidemia (Chronic) Onset Date: Unknown Hypertension (Chronic) Onset Date: Unknown Seizure (Chronic) Onset Date: Unknown Coronary artery disease (Chronic) Chronic kidney disease (Chronic) Onset Date: Unknown Cirrhosis Hyperammonemia Diabetes Onset Date: Unknown Venous stasis Onset Date: Unknown Hepatosplenomegaly Onset Date: Unknown History of cellulitis Onset Date: Unknown Surgical History: Surgical History (Last Reviewed 04/27/18 @ 13:04 by Jose Mitchell RN) H/O colonoscopy Onset Date: Unknown approx. 2015 [facility]-normal H/O hernia repair Onset Date: Unknown abdominal. 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 Smoking Status Former smoker Have you smoked in the past 12 No months Do you dip or chew tobacco No Abuse History No History of abuse Psych History No pertinent hx (Last Updated 03/31/18 @ 12:52 by Mercy Feng DO) No Social History Section defined Peds Patient Hx - Developmental: No Pertinent Hx Peds Patient Hx - Medical: No Pertinent Hx Peds Patient Hx - Cardiac/Respiratory: No Pertinent Hx Peds Patient Hx - Surgical: No Surgical History Patient History - Cancer: No Hx of Cancer Review Of Systems (GEN) - Review of Systems Generalized/Overall Review: Present: Weakness, Chills, Fever EENTM: Present: No Symptoms Reported Respiratory: Present: No Symptoms Reported Cardiac: Present: Edema Abdominal: Present: No Symptoms Reported Genitourinary: Present: No Symptoms Reported Musculoskeletal: Present: No Symptoms Reported Neurological: Present: Other - Confusion and disorientation of several days' duration Skin: Present: Lesions - Superficial ulcers on lower extremities, Change in Color Endocrine: Present: No Symptoms Reported Immunizations: IMMUNIZATION HX Immunizations Up to Date Yes History of Influenza Vaccine Yes Hx Pneumococcal Vaccination More Information Required Allergies/Adverse Reactions: Allergies Allergy/AdvReac Type Severity Reaction Status Date / Time amoxicillin [From Augmentin] Allergy Severe Swelling Verified 04/27/18 13:04 of Face clavulanic acid Allergy Severe Swelling Verified 04/27/18 13:04 [From Augmentin] of Face Home Medications: HOME MEDICATIONS Atorvastatin Calcium [Lipitor] 40 mg PO DAILY #30 tab 04/07/17 [Last Taken 03/09/18] Cholecalciferol (Vitamin D3) [Vitamin D3] 5,000 unit PO DAILY #30 tab 04/07/17 [Last Taken 03/09/18] albuterol sulfate HFA 90 mcg/actuation aerosol inhaler 1 puff IH Q6H PRN 10/24/17 [Last Taken Unknown] clopidogrel 75 mg tablet 75 mg PO DAILY 10/24/17 [Last Taken 03/09/18] levetiracetam 250 mg tablet 500 mg PO BID tab 10/24/17 [Last Taken 03/09/18] lisinopril 5 mg tablet 5 mg PO DAILY 10/24/17 [Last Taken 03/09/18] metoprolol succinate ER 25 mg tablet,extended release 24 hr 25 mg PO HS #30 tab.er.24h 02/23/18 [Last Taken 03/09/18] Furosemide [Lasix] 80 mg PO BID 03/10/18 [Last Taken 03/09/18] Insulin Aspart [Novolog Flexpen] 30 unit SQ TID 03/10/18 [Last Taken 03/09/18] Insulin Degludec [Tresiba Flextouch U-100] 144 unit SQ DAILY 03/10/18 [Last Taken 03/09/18] Lactulose [Enulose] 30 ml PO TID #900 ml 03/11/18 [Last Taken Unknown] C-PAP See Dose Instructions .ROUTE .MEDSUPPLY #1 ea 04/07/18 [Last Taken Unknown] blood sugar diagnostic strips See Dose Instructions .ROUTE .MEDSUPPLY #10 ea [Last Taken Unknown] blood-glucose meter kit See Dose Instructions .ROUTE .MEDSUPPLY #1 ea 04/07/18 [Last Taken Unknown] Ferrous Sulfate [Iron] 325 mg PO BID 04/27/18 [Last Taken Unknown] Rifaximin [Xifaxan] 550 mg PO BID 04/27/18 [Last Taken Unknown] Exam - Exam Vital Signs: Vital Signs - Last Taken Temp 38.2 C H 04/27/18 13:05 Pulse 86 04/27/18 13:05 Resp 22 H 04/27/18 13:05 BP 149/64 04/27/18 13:05 Pulse Ox 95 04/27/18 12:24 Constitutional: Present: No distress, Somnolent, Elderly, Morbidly obese, Looks Older than stated age ENT Exam: Present: normal ENT inspection, pharynx normal, TMs normal Eye Exam: bilateral eye: normal inspection, PERRL, EOMI Neck: Present: non-tender, full range of motion, supple, normal inspection, trachea midline Back Exam: Present: normal inspection, no CVA tenderness, no vertebral tenderness Breasts: Present: Exam deferred Respiratory: Present: chest non-tender, lungs clear, normal breath sounds, no respiratory distress, no accessory muscle use Cardiovascular/Chest: Present: regular rate, rhythm, no chest tenderness, no gallop, no JVD, no murmur, edema - 4+ bilateral pedal edema Peripheral Pulses: carotid (R): 3+, carotid (L): 3+, femoral (R): 3+, femoral (L): 3+, dorsalis-pedis (R): 2+, dorsalis-pedis (L): 2+ Abdomen: Present: Normal bowel sounds, soft, nontender, nondistended, no rebound tenderness, obese /Rectal: Present: Exam deferred Extremity: Present: normal range of motion, non-tender, no calf tenderness, pedal edema - 4+ bilateral pedal edema Skin Exam: Present: warm/dry, other - Marked erythema of bilateral lower extremity with small 2 cm concentric superficial ulcer on medial aspect of the left hummel, small superficial ulcer in the medial aspect of left lower extremity. Bilateral dry scales on lower extremity with warm and tenderness to palpation. Lymphatic: Present: no adenopathy Neurologic: Present: certification engineer II-XII nml as tested, no motor/sensory deficits, alert, disoriented x 3 Appearance: Present: disheveled, impaired insight Eye contact: Present: uncooperative Thoughts: Present: other - Patient is disoriented x3 unable to assess thought pattern Diagnostic Studies: Abnormal Lab Results 04/27/18 04/27/18 04/27/18 Range/Units 08:38 08:38 08:38 WBC 12.2 H (4.0-10.5) K/mm3 RBC 3.45 L (4.7-6.0) M/mm3 Hgb 10.1 L (13.5-18.0) gm/dL Hct 31.7 L (42.0-52.0) % MCHC 31.9 L (32-36) g/dl RDW 14.8 H (11.5-14.0) % Plt Count 108 L (150-450) K/mm3 Immature Gran # (Auto) 0.04 H (0.000-0.0310) K/mm3 Neutrophils % 80.8 H (42-75.0) % Lymphocytes % 8.0 L (20-51) % Neutrophils # 9.9 H (1.3-6.0) K/mm3 Lymphocytes # 0.97 L (1.5-3.5) k/mm3 PT (9.0-11.0) Seconds INR (Anticoag Therapy) (0.90-1.10) INR Potassium 5.3 H (3.4-4.6) mmol/L BUN 49 H (6-23) mg/dL Creatinine 3.49 H (0.4-1.4) mg/dL Est GFR (Non-Af Amer) 19 L (60-130) mL/min ALT 18 L (19-67) U/L Ammonia 107.0 H (11-35) mcmol/L C-Reactive Prot, Quant 1.9 H (0.0-0.9) mg/dL Total Protein 8.3 H (6.2-8.2) gm/dL Albumin 2.7 L (3.4-5.0) gm/dl Urine Protein (NEGATIVE) mg/dL Urine Blood (NEGATIVE) /ul Prot Sulfosalicylic Acd (0) mg/dL Urine RBC (0-5) /hpf 04/27/18 04/27/18 Range/Units 08:47 09:45 WBC (4.0-10.5) K/mm3 RBC (4.7-6.0) M/mm3 Hgb (13.5-18.0) gm/dL Hct (42.0-52.0) % MCHC (32-36) g/dl RDW (11.5-14.0) % Plt Count (150-450) K/mm3 Immature Gran # (Auto) (0.000-0.0310) K/mm3 Neutrophils % (42-75.0) % Lymphocytes % (20-51) % Neutrophils # (1.3-6.0) K/mm3 Lymphocytes # (1.5-3.5) k/mm3 PT 11.4 H (9.0-11.0) Seconds INR (Anticoag Therapy) 1.14 H (0.90-1.10) INR Potassium (3.4-4.6) mmol/L BUN (6-23) mg/dL Creatinine (0.4-1.4) mg/dL Est GFR (Non-Af Amer) (60-130) mL/min ALT (19-67) U/L Ammonia (11-35) mcmol/L C-Reactive Prot, Quant (0.0-0.9) mg/dL Total Protein (6.2-8.2) gm/dL Albumin (3.4-5.0) gm/dl Urine Protein 100 H (NEGATIVE) mg/dL Urine Blood 250 H (NEGATIVE) /ul Prot Sulfosalicylic Acd 4+ H (0) mg/dL Urine RBC 10-25 H (0-5) /hpf Laboratory Results WBC 12.2 K/mm3 (4.0-10.5) H 04/27/18 08:38 RBC 3.45 M/mm3 (4.7-6.0) L 04/27/18 08:38 Hgb 10.1 gm/dL (13.5-18.0) L 04/27/18 08:38 Hct 31.7 % (42.0-52.0) L 04/27/18 08:38 MCV 91.9 fl (78-100) 04/27/18 08:38 MCH 29.3 pg (27-31) 04/27/18 08:38 MCHC 31.9 g/dl (32-36) L 04/27/18 08:38 RDW 14.8 % (11.5-14.0) H 04/27/18 08:38 Plt Count 108 K/mm3 (150-450) L 04/27/18 08:38 MPV 10.0 fl (8-11.3) 04/27/18 08:38 Immature Gran % (Auto) 0.30 % (0.001-0.429) 04/27/18 08:38 Immature Gran # (Auto) 0.04 K/mm3 (0.000-0.0310) H 04/27/18 08:38 Neutrophils % 80.8 % (42-75.0) H 04/27/18 08:38 Lymphocytes % 8.0 % (20-51) L 04/27/18 08:38 Monocytes % 8.2 % (0.0-9) 04/27/18 08:38 Eosinophils % 2.1 % (0.0-3.0) 04/27/18 08:38 Basophils % 0.6 % (0.0-1.0) 04/27/18 08:38 Nucleated RBC % 0.0 k/mm3 (0-1) 04/27/18 08:38 Neutrophils # 9.9 K/mm3 (1.3-6.0) H 04/27/18 08:38 Lymphocytes # 0.97 k/mm3 (1.5-3.5) L 04/27/18 08:38 Monocytes # 1.0 k/mm3 (0.0-1.0) 04/27/18 08:38 Eosinophils # 0.3 k/mm3 (0.0-0.7) 04/27/18 08:38 Absolute Basophils 0.1 k/mm3 (0.0-0.1) 04/27/18 08:38 PT 11.4 Seconds (9.0-11.0) H 04/27/18 09:45 INR (Anticoag Therapy) 1.14 INR (0.90-1.10) H 04/27/18 09:45 PTT (Jose Martin) 26.5 Seconds (24-32) 04/27/18 09:45 Sodium 139 mmol/L (132-142) 04/27/18 08:38 Plasma Sodium 139 mmol/L (130-142) 04/27/18 08:38 Potassium 5.3 mmol/L (3.4-4.6) H 04/27/18 08:38 Chloride 104 mmol/L (97-106) 04/27/18 08:38 Carbon Dioxide 26.5 mmol/L (24-32.6) 04/27/18 08:38 Anion Gap 13.8 mmol/L (6.8-13.8) 04/27/18 08:38 BUN 49 mg/dL (6-23) H 04/27/18 08:38 Creatinine 3.49 mg/dL (0.4-1.4) H 04/27/18 08:38 Est GFR (Non-Af Amer) 19 mL/min (60-130) L 04/27/18 08:38 BUN/Creatinine Ratio 14.0 (9.0-21.6) 04/27/18 08:38 Random Glucose 83 mg/dL (70-110) 04/27/18 08:38 Lactic Acid, Venous 1.5 mmol/L (0.4-2.0) 04/27/18 08:38 Calcium 8.9 mg/dL (7.9-10.9) 04/27/18 08:38 Calcium Adj for Albumin 9.6 mg/dL (8.4-10.2) 04/27/18 08:38 Total Bilirubin 0.8 mg/dL (0.0-1.1) 04/27/18 08:38 AST 26 U/L (0-48) 04/27/18 08:38 ALT 18 U/L (19-67) L 04/27/18 08:38 Alkaline Phosphatase 128 U/L (50-170) 04/27/18 08:38 Ammonia 107.0 mcmol/L (11-35) H 04/27/18 08:38 C-Reactive Prot, Quant 1.9 mg/dL (0.0-0.9) H 04/27/18 08:38 Total Protein 8.3 gm/dL (6.2-8.2) H 04/27/18 08:38 Albumin 2.7 gm/dl (3.4-5.0) L 04/27/18 08:38 Urine Color Yellow 04/27/18 08:47 Urine Appearance Clear (CLEAR) 04/27/18 08:47 Urine pH 7.0 pH (5.0-7.0) 04/27/18 08:47 Ur Specific [place] 1.020 SP.GR. (1.005-1.030) 04/27/18 08:47 Urine Protein 100 mg/dL (NEGATIVE) H 04/27/18 08:47 Urine Glucose (UA) Negative mg/dL (NEGATIVE) 04/27/18 08:47 Urine Ketones Negative mg/dL (NEGATIVE) 04/27/18 08:47 Urine Blood 250 /ul (NEGATIVE) H 04/27/18 08:47 Urine Nitrate Negative (NEGATIVE) 04/27/18 08:47 Urine Bilirubin Negative mg/dl (NEGATIVE) 04/27/18 08:47 Prot Sulfosalicylic Acd 4+ mg/dL (0) H 04/27/18 08:47 Urine Urobilinogen Normal EU/dl (NORMAL) 04/27/18 08:47 Ur Leukocyte Esterase Negative /ul (NEGATIVE) 04/27/18 08:47 Urine RBC 10-25 /hpf (0-5) H 04/27/18 08:47 Urine WBC None seen /hpf (0-5) 04/27/18 08:47 Ur Epithelial Cells None seen /hpf (0-5) 04/27/18 08:47 Urine Bacteria None seen (NONE) 04/27/18 08:47 Urine Culture Comments Culture to follow 04/27/18 08:47 Influenza Type A Ag Negative (NEGATIVE) 04/27/18 08:38 Influenza Type B Ag Negative (NEGATIVE) 04/27/18 08:38 Assessment/Plan - Narrative Narrative: After evaluating patient and the medical record including labs, it was determined that patient has hyperammonemia likely secondary to liver cirrhosis and hyperkalemia. A neurologic examination of patient demonstrated marked confusion and disorientation x3 likely secondary to hepatic encephalopathy due to hyperammonemia. Decision to admit to observation was taken. Patient will be treated with lactulose by nasogastric tube as well as serial breathing treatments with albuterol to address hyperkalemia. Patient was also found to have cellulitis of both lower extremities so we will treat him with IV antibiotics, this is most likely the source of infection. We will also treated with IV fluid to address moderate dehydration. Given the clinical picture, blood cultures, urine culture, and sputum cultures were ordered to guide antibiotic therapy we will follow-up with results. Wound center was consulted to evaluate ulcers on patient's lower extremities and for all necessary dressing changes and recommendation on long-term management of the lesions. Follow-up labs were ordered to reevaluate ammonia levels leukocytosis and electrolytes. We will will monitor him closely. - Assessment/Plan (1) Cellulitis of both lower extremities Problem: Acute (2) Hyperammonemia Problem: Acute (3) CKD (chronic kidney disease) Problem: Chronic Qualifiers: (4) Liver cirrhosis Problem: Acute (5) Diabetes 1.5, managed as type 2 Problem: Chronic (6) Hypertension Problem: Chronic (7) SIRS (systemic inflammatory response syndrome) Problem: Acute (8) Hyperkalemia Problem: Acute (9) CKD (chronic kidney disease) stage 4, GFR 15-29 ml/min Problem: Chronic (10) Moderate dehydration Problem: Acute (11) Hepatic encephalopathy Problem: Acute
[2018-04-27] MEDS ORDERED: LEVOFLOXACIN IN DEXTROSE 5 % 750 MG/150 ML BAG IV SCH (20:00)
[2018-04-27] MEDS ORDERED: ROSUVASTATIN CALCIUM 20 MG TABLET PO SCH (20:00)
[2018-04-27] MEDS ORDERED: FUROSEMIDE 80 MG TABLET PO SCH (20:00)
[2018-04-27] MEDS ORDERED: LACTULOSE 10 G/15 ML BTL PO SCH (20:00)
[2018-04-27] MEDS: PANTOPRAZOLE SODIUM 40 MG in NORMAL SALINE 100 ML IV SCH (20:23)
[2018-04-27] MEDS ORDERED: ROSUVASTATIN CALCIUM 10 MG TABLET ONE (20:59)
[2018-04-27] MEDS ORDERED: FUROSEMIDE 40 MG TABLET ONE (21:00)
[2018-04-27] MEDS ORDERED: FUROSEMIDE 80 MG TABLET NG SCH ×2 (21:00)
[2018-04-27] MEDS ORDERED: levETIRAcetam 500 MG TABLET PO SCH (21:00)
[2018-04-27] MEDS ORDERED: METOPROLOL SUCCINATE 25 MG TABLET.SA PO SCH (21:00)
[2018-04-27] MEDS ORDERED: NON-FORMULARY 1 DOSE DOSE (Rifaximin [Xifaxan] 550 MG) PO SCH (21:00)
[2018-04-27] MEDS ORDERED: FERROUS SULFATE 325 MG TABLET PO SCH (21:00)
[2018-04-27] MEDS ORDERED: METOPROLOL SUCCINATE 50 MG TABLET.SA PO ONE (21:02)
[2018-04-27] MEDS: FERROUS SULFATE 325 MG TABLET NG SCH (21:19)
[2018-04-27] MEDS: INSULIN LISPRO 100 UNITS/ML VIAL SC SCH (21:20)
[2018-04-27] MEDS: levETIRAcetam 500 MG TABLET NG SCH (21:20)
[2018-04-27] MEDS: ENOXAPARIN SODIUM 40 MG/0.4 ML SYRG SC SCH (21:21)
[2018-04-28] MEDS: INSULIN GLARGINE,HUM.REC.ANLOG 100 UNITS/ML VIAL SC SCH ×2 (00:46→21:33)
[2018-04-28] MEDS: INSULIN REGULAR, HUMAN 100 UNITS/ML VIAL SC SCH ×3 (00:46→12:36)
[2018-04-28] MEDS: ALBUTEROL SULFATE 2.5 MG/0.5 ML VIAL.NEB IH SCH ×6 (02:09→22:34)
[2018-04-28 06:27] LABS: Hemoglobin 8.4 gm/dL (13.5-18.0); Mean Cell Volume 92.9 fl (78-100); Mean Corpuscular Hgb Conc 32.3 g/dl (32-36); Mean Platelet Volume 10.3 fl (8-11.3); Neutrophil % 78.6 % (42-75.0); Platelet Count 79 K/mm3 (150-450); Red Cell Distribution Width 15.3 % (11.5-14.0); White Blood Count 7.7 K/mm3 (4.0-10.5)
[2018-04-28 06:36] LABS: Albumin * 2.1 gm/dl (3.4-5.0); Anion Gap 14.4 mmol/L (6.8-13.8); BUN/Creatinine Ratio 14.6 (9.0-21.6); Bilirubin, Total 0.7 mg/dL (0.0-1.1); Ca. Corrected For Albumin 9.6 mg/dL (8.4-10.2); Calcium * 8.4 mg/dL (7.9-10.9); Carbon Dioxide 24.7 mmol/L (24-32.6); Potassium 5.1 mmol/L (3.4-4.6); Total Protein 6.9 gm/dL (6.2-8.2)
[2018-04-28] MEDS: RIFAXIMIN 200 MG TABLET NG SCH ×3 (07:40→21:38)
[2018-04-28] MEDS: INSULIN LISPRO 100 UNITS/ML VIAL SC SCH ×2 (07:41→12:36)
--- NOTE | 2018-04-28 08:20 | PN ---
Subjective - Date and Time Seen Date: 04/28/18 Time: 08:09 Subjective Narrative: Patient is more alert this morning. Denies pain, or shortness of breath. He feels hungry. Still has some confusion. He and his feel like he had been having multiple daily bowel movements, and hadn't missed doses. Objective - Review of Systems Generalized/Overall Review: Denies: Fever Respiratory: Denies: Shortness of Breath Cardiac: Denies: Chest Pain Abdominal: Denies: Vomiting - Vitals Vitals: Last Vital Signs Temp 36.9 C 04/28/18 06:40 Pulse 73 04/28/18 06:40 Resp 20 04/28/18 06:40 BP 118/55 04/28/18 06:40 Pulse Ox 95 04/28/18 06:40 - Abnormal Lab Findings Abnormal Lab Findings: Abnormal Lab Results 04/27/18 04/27/18 04/27/18 Range/Units 08:38 08:38 08:38 WBC 12.2 H (4.0-10.5) K/mm3 RBC 3.45 L (4.7-6.0) M/mm3 Hgb 10.1 L (13.5-18.0) gm/dL Hct 31.7 L (42.0-52.0) % MCHC 31.9 L (32-36) g/dl RDW 14.8 H (11.5-14.0) % Plt Count 108 L (150-450) K/mm3 Immature Gran % (Auto) (0.001-0.429) % Immature Gran # (Auto) 0.04 H (0.000-0.0310) K/mm3 Neutrophils % 80.8 H (42-75.0) % Lymphocytes % 8.0 L (20-51) % Neutrophils # 9.9 H (1.3-6.0) K/mm3 Lymphocytes # 0.97 L (1.5-3.5) k/mm3 PT (9.0-11.0) Seconds INR (Anticoag Therapy) (0.90-1.10) INR Potassium 5.3 H (3.4-4.6) mmol/L Chloride (97-106) mmol/L Anion Gap (6.8-13.8) mmol/L BUN 49 H (6-23) mg/dL Creatinine 3.49 H (0.4-1.4) mg/dL Est GFR (Non-Af Amer) 19 L (60-130) mL/min Random Glucose (70-110) mg/dL ALT 18 L (19-67) U/L Ammonia 107.0 H (11-35) mcmol/L C-Reactive Prot, Quant 1.9 H (0.0-0.9) mg/dL Total Protein 8.3 H (6.2-8.2) gm/dL Albumin 2.7 L (3.4-5.0) gm/dl Urine Protein (NEGATIVE) mg/dL Urine Blood (NEGATIVE) /ul Prot Sulfosalicylic Acd (0) mg/dL Urine RBC (0-5) /hpf 04/27/18 04/27/18 04/28/18 Range/Units 08:47 09:45 06:21 WBC (4.0-10.5) K/mm3 RBC 2.80 L (4.7-6.0) M/mm3 Hgb 8.4 L (13.5-18.0) gm/dL Hct 26.0 L (42.0-52.0) % MCHC (32-36) g/dl RDW 15.3 H (11.5-14.0) % Plt Count 79 L (150-450) K/mm3 Immature Gran % (Auto) 0.50 H (0.001-0.429) % Immature Gran # (Auto) 0.04 H (0.000-0.0310) K/mm3 Neutrophils % 78.6 H (42-75.0) % Lymphocytes % 10.8 L (20-51) % Neutrophils # (1.3-6.0) K/mm3 Lymphocytes # 0.83 L (1.5-3.5) k/mm3 PT 11.4 H (9.0-11.0) Seconds INR (Anticoag Therapy) 1.14 H (0.90-1.10) INR Potassium (3.4-4.6) mmol/L Chloride (97-106) mmol/L Anion Gap (6.8-13.8) mmol/L BUN (6-23) mg/dL Creatinine (0.4-1.4) mg/dL Est GFR (Non-Af Amer) (60-130) mL/min Random Glucose (70-110) mg/dL ALT (19-67) U/L Ammonia (11-35) mcmol/L C-Reactive Prot, Quant (0.0-0.9) mg/dL Total Protein (6.2-8.2) gm/dL Albumin (3.4-5.0) gm/dl Urine Protein 100 H (NEGATIVE) mg/dL Urine Blood 250 H (NEGATIVE) /ul Prot Sulfosalicylic Acd 4+ H (0) mg/dL Urine RBC 10-25 H (0-5) /hpf 04/28/18 04/28/18 Range/Units 06:21 06:21 WBC (4.0-10.5) K/mm3 RBC (4.7-6.0) M/mm3 Hgb (13.5-18.0) gm/dL Hct (42.0-52.0) % MCHC (32-36) g/dl RDW (11.5-14.0) % Plt Count (150-450) K/mm3 Immature Gran % (Auto) (0.001-0.429) % Immature Gran # (Auto) (0.000-0.0310) K/mm3 Neutrophils % (42-75.0) % Lymphocytes % (20-51) % Neutrophils # (1.3-6.0) K/mm3 Lymphocytes # (1.5-3.5) k/mm3 PT (9.0-11.0) Seconds INR (Anticoag Therapy) (0.90-1.10) INR Potassium 5.1 H (3.4-4.6) mmol/L Chloride 107 H (97-106) mmol/L Anion Gap 14.4 H (6.8-13.8) mmol/L BUN 59 H (6-23) mg/dL Creatinine 4.03 H D (0.4-1.4) mg/dL Est GFR (Non-Af Amer) 16 L (60-130) mL/min Random Glucose 123 H D (70-110) mg/dL ALT 12 L (19-67) U/L Ammonia 62.0 H (11-35) mcmol/L C-Reactive Prot, Quant (0.0-0.9) mg/dL Total Protein (6.2-8.2) gm/dL Albumin 2.1 L (3.4-5.0) gm/dl Urine Protein (NEGATIVE) mg/dL Urine Blood (NEGATIVE) /ul Prot Sulfosalicylic Acd (0) mg/dL Urine RBC (0-5) /hpf - Exam Constitutional: Present: Alert - Oriented to self and town, unable to say the name of the building or the season. NG tube in place, Cooperative Respiratory: Present: normal breath sounds, no respiratory distress Cardiovascular/Chest: Present: regular rate, rhythm Abdomen: Present: soft, nontender, obese, hypoactive Extremity: Present: lower extremity edema - 2+ bilaterally to the ankle Skin Exam: Present: other - flaky anterior skin of bilateral lower extremities. Mild erythema of left greater than right. 1 cm anterior eschar of left. No weeping or oozing Eye contact: Present: cooperative, good eye contact Assessment/Plan - Problems/Diagnosis (1) Hepatic encephalopathy Problem: Acute Narrative: Improving. He is oriented to self and partial location (knows town, doesn't know building). He takes 30 mg lactulose tid at home, and 550 mg xifaxin bid. He hasn't missed doses. He may need an increased dose of lactulose. Is established with GI, and discussions have been held regarding possible transplant. Per his , in order for him to have a transplant, he would need to walk 3 football [place] in 6 minutes. They want a second opinion, which is being managed in my clinic. Have not received recent GI notes, but he likely should be prescribed propranolol and spironolactone. Will need to attempt to acquire GI notes. However, if prescribed spironolactone, will need to hold until his potassium is less than 5.0. Hold lasix since his creatinine is increasing, but would like to resume on DC to avoid ascites. He passed a bedside swallow, and will remove the NG tube, and change his diet to full liquids. May be able to DC tomorrow. (2) Venous stasis dermatitis of both lower extremities Problem: Chronic Narrative: No definite signs of cellulitis today, but he did have a fever yesterday, and has received antibiotics. Will continue antibiotics, but switch to po cefdinir. (3) Hyperammonemia Problem: Resolved Narrative: Improving. Continue 30 mg lactulose tid, and 600 rifaximin bid. (4) T2DM (type 2 diabetes mellitus) Problem: Chronic Qualifiers: Diabetes mellitus assistant terminal manager insulin use: with assistant terminal manager use Narrative: His glucose has been in the low 100's. Holding home tresiba, as it is long acting. (5) CKD (chronic kidney disease) stage 4, GFR 15-29 ml/min Problem: Chronic Narrative: Creatinine is up to 4.03, which is an increase from 3.49 yesterday. His baseline is around 3.5. He is established with nephrology. His potassium is 5.1, down from 5.3 yesterday. May need phoslo, if not already prescribed. Will need to check nephrology notes, if available. (6) Hypertension Problem: Chronic Qualifiers: Hypertension type: essential hypertension Qualified Code(s): I10 - Essential (primary) hypertension Narrative: well controlled (7) Normocytic anemia Problem: Acute Narrative: Stool occult blood pending. He does not report signs of blood loss. His renal disease is likely contributing. (8) Fever Problem: Resolved Narrative: He has mild left lower extremity erythema, and differential includes both cellulitis and venous stasis changes. He has not been febrile since yesterday afternoon. WBC initially 12.2 yesterday, normalized to 7.7 today. Urine, blood cultures, procalcitonin pending. He received a dose of Rocephin and levaquin. His mentation has improved, and will change antibiotics to po cefdinir. If his mentation continues to improve and he remains afebrile, would recommend DC with 5 total days of cefdinir. (9) Morbid obesity Problem: Chronic
[2018-04-28] MEDS ORDERED: LISINOPRIL 5 MG TABLET PO SCH (09:00)
[2018-04-28] MEDS ORDERED: CHOLECALCIFEROL 5,000 UNIT TABLET PO SCH (09:00)
[2018-04-28] MEDS ORDERED: LACTULOSE 10 G/15 ML BTL NG SCH (09:00)
[2018-04-28] MEDS: CEFDINIR 300 MG CAPSULE PO SCH (09:26)
[2018-04-28] MEDS: ENOXAPARIN SODIUM 40 MG/0.4 ML SYRG SC SCH ×2 (09:26→21:39)
[2018-04-28] MEDS: FUROSEMIDE 40 MG TABLET NG SCH (09:27)
[2018-04-28] MEDS: LISINOPRIL 5 MG TABLET NG SCH (09:27)
[2018-04-28] MEDS: CLOPIDOGREL BISULFATE 75 MG TABLET NG SCH (09:27)
[2018-04-28] MEDS: FERROUS SULFATE 325 MG TABLET NG SCH ×2 (09:27→21:37)
[2018-04-28] MEDS: levETIRAcetam 500 MG TABLET NG SCH (09:27)
[2018-04-28] MEDS: CHOLECALCIFEROL 5,000 UNIT TABLET NG SCH (09:27)
[2018-04-28] MEDS: LACTULOSE 10 G/15 ML BTL NG SCH ×3 (09:28→17:53)
[2018-04-28] MEDS: INSULIN ASPART 100 UNITS/ML VIAL SC SCH ×2 (12:42→17:52)
--- NOTE | 2018-04-28 16:26 | CONS ---
[facility] - General Date of Service: 04/28/18 Narrative: Patient is a 63 year old male, recently admitted to the hospital following episodes of disorientation. The patient has been a visitor to the [facility] on two prior occasions, regarding the edema in bilateral lower extremities. The most recent being 02/01/2018. He typically responds well to compression therapy. His medical history includes liver cirrhosis, obstructive sleep apnea, congestive heart failure, hypertension, seizure disorder, coronary artery disease, prior NM, chronic kidney disease, diabetes, vitamin D deficiency. He denies any pain in his legs at this time. He states that he has been wearing his compression stockings at home. He did not have them on when he presented to the Emergency Department. Source: patient, family Exam Limitations: no limitations - History of Present Illness Timing/Duration: constant Allergies/Adverse Reactions: Allergies amoxicillin [From Augmentin] Allergy (Severe, Verified 04/27/18 13:04) Swelling of Face clavulanic acid [From Augmentin] Allergy (Severe, Verified 04/27/18 13:04) Swelling of Face Home Medications: Home Medications Medication Instructions Recorded Last Taken Atorvastatin Calcium [Lipitor] 40 mg PO DAILY #30 tab 04/07/17 03/09/18 Cholecalciferol (Vitamin D3) 5,000 unit PO DAILY #30 tab 04/07/17 03/09/18 [Vitamin D3] albuterol sulfate HFA 90 1 puff IH Q6H PRN 10/24/17 Unknown mcg/actuation aerosol inhaler clopidogrel 75 mg tablet 75 mg PO DAILY 10/24/17 03/09/18 Insulin Aspart [Novolog Flexpen] 30 unit SQ TID 03/10/18 03/09/18 C-PAP See Dose Instructions .ROUTE 04/07/18 Unknown .MEDSUPPLY #1 ea blood sugar diagnostic strips See Dose Instructions .ROUTE 04/07/18 Unknown .MEDSUPPLY #10 ea blood-glucose meter kit See Dose Instructions .ROUTE 04/07/18 Unknown .MEDSUPPLY #1 ea levetiracetam 500 mg tablet 500 mg PO BID #60 tab 04/28/18 Unknown Acetaminophen 500 mg PO QID PRN #30 tab 04/30/18 Unknown Furosemide [Lasix] 40 mg PO DAILY #7 tab 04/30/18 Unknown Insulin Degludec [Tresiba 30 unit SQ DAILY #1 insuln.pen 04/30/18 Unknown Flextouch U-100] Nystatin [Mycostatin Powder] 1 appl TOPICAL BID #1 btl 04/30/18 Unknown Pantoprazole Sodium [Protonix] 40 mg PO DAILY@0700 #30 tablet.dr 04/30/18 Unknown Propranolol HCl [Inderal] 10 mg PO TID #90 tab 04/30/18 Unknown ferrous sulfate 325 mg (65 mg 325 mg PO DAILY #90 tab 05/02/18 Unknown iron) tablet lactulose 10 gram/15 mL oral 30 ml PO TID #900 ml 05/02/18 Unknown solution rifaximin 550 mg tablet 550 mg PO BID #180 tab 05/02/18 Unknown Procedures Measurement of Arterial Saturation, Peripheral, Percutaneous Approach (12/04/16) Medications - Medications Current Medications: Current Medications Albuterol Sulfate (Albuterol Sulfate 2.5 Mg/0.5ml) 2.5 mg IH Q4HRT [facility] Stop: 05/27/18 19:01 Last Admin: 04/28/18 14:34 Dose: 2.5 mg Documented by: Benzocaine/Butamben/Tetracaine HCl (Cetacaine) 1 spray TP PRN PRN PRN Reason: Analgesia Stop: 05/27/18 11:01 Last Admin: 04/27/18 11:22 Dose: 1 spray Documented by: Cefdinir (Omnicef) 300 mg PO DAILY [facility]; Protocol Stop: 05/03/18 09:01 Last Admin: 04/28/18 09:26 Dose: 300 mg Documented by: Cholecalciferol (Vitamin D) 5,000 unit NG DAILY [facility] Stop: 05/28/18 09:01 Last Admin: 04/28/18 09:27 Dose: 5,000 unit Documented by: Clopidogrel Bisulfate (Plavix) 75 mg NG DAILY [facility] Stop: 05/28/18 09:01 Last Admin: 04/28/18 09:27 Dose: 75 mg Documented by: Enoxaparin Sodium (Lovenox) 40 mg SC Q12H [facility] Stop: 05/27/18 21:01 Last Admin: 04/28/18 09:26 Dose: 40 mg Documented by: Ferrous Sulfate (Ferrous Sulfate) 325 mg NG BID [facility] Stop: 05/27/18 21:01 Last Admin: 04/28/18 09:27 Dose: 325 mg Documented by: Furosemide (Lasix) 40 mg NG BID [facility] Stop: 05/28/18 09:01 Last Admin: 04/28/18 09:27 Dose: 40 mg Documented by: Pantoprazole Sodium 40 mg/ (Sodium Chloride) 100 mls @ 400 mls/hr IV Q24H [facility] Stop: 05/27/18 21:01 Last Infusion: 04/27/18 20:38 Dose: Infused Documented by: Insulin Aspart (Novolog) 30 units SC ACINS [facility] Stop: 05/28/18 13:01 Last Admin: 04/28/18 12:42 Dose: 30 units Documented by: Insulin Glargine (Lantus) 30 units SC HS [facility] Stop: 05/27/18 21:01 Last Admin: 04/28/18 00:46 Dose: Not Given Documented by: Lactulose (Enulose) 30 g NG TID [facility] Stop: 05/28/18 09:01 Last Admin: 04/28/18 12:42 Dose: 30 g Documented by: Lisinopril (Zestril) 5 mg NG DAILY [facility] Stop: 05/28/18 09:01 Last Admin: 04/28/18 09:27 Dose: 5 mg Documented by: Rifaximin (Xifaxan) 600 mg NG BID [facility] Stop: 05/27/18 21:01 Last Admin: 04/28/18 09:26 Dose: 600 mg Documented by: Review of Systems - Review of Systems Generalized/Overall Review: Present: Fever, Fatigue EENTM: Absent: Nose Congestion Respiratory: Absent: Cough Cardiac: Present: Edema. Absent: Chest Pain Abdominal: Absent: Nausea, Vomiting Musculoskeletal: Present: Muscle Pain Neurological: Absent: Headache Skin: Absent: Lesions Physical Examination - Exam Vital Signs: Vital Signs - Last Taken Temp 36.6 C 04/28/18 11:35 Pulse 71 04/28/18 14:44 Resp 20 04/28/18 14:44 BP 139/55 04/28/18 11:35 Pulse Ox 91 L 04/28/18 14:34 O2 Oxygen Delivery Method Room Air Constitutional: Present: Alert, Cooperative, No distress, Morbidly obese ENT Exam: Present: hearing grossly normal Respiratory: Present: no respiratory distress Extremity: Present: normal capillary refill, lower extremity edema Skin Exam: Present: warm/dry, other - no open areas, no drainage, no erythema Eye contact: Present: cooperative, good eye contact, normal speech - Results and Findings: Lab/Microbiology results last 24 hrs: Abnormal/Pending Laboratory Last 24 HRS 04/28/18 04/28/18 04/28/18 06:21 06:21 06:21 RBC 2.80 L Hgb 8.4 L Hct 26.0 L RDW 15.3 H Plt Count 79 L Immature Gran % (Auto) 0.50 H Immature Gran # (Auto) 0.04 H Neutrophils % 78.6 H Lymphocytes % 10.8 L Lymphocytes # 0.83 L Potassium 5.1 H Chloride 107 H Anion Gap 14.4 H BUN 59 H Creatinine 4.03 H D Est GFR (Non-Af Amer) 16 L Random Glucose 123 H D ALT 12 L Ammonia 62.0 H Albumin 2.1 L Procalcitonin 04/28/18 06:00 RBC Hgb Hct RDW Plt Count Immature Gran % (Auto) Immature Gran # (Auto) Neutrophils % Lymphocytes % Lymphocytes # Potassium Chloride Anion Gap BUN Creatinine Est GFR (Non-Af Amer) Random Glucose ALT Ammonia Albumin Procalcitonin 9.51 H Culture 04/27/18 08:38 Blood Culture - Preliminary Blood NO GROWTH 24 HOURS 04/27/18 08:38 Blood Culture - Preliminary Blood NO GROWTH 24 HOURS 04/27/18 08:47 Urine Culture - Preliminary Urine,Catheterized No Growth - Assessments/Findings (1) Venous insufficiency (chronic) (peripheral) Problem: Acute (2) Venous stasis dermatitis of both lower extremities Diagnosis(s): The patient would benefit from compression. Recommend two layers of tubigrip at this time. His states that she will bring his compression stockings from home. He will continue to keep his legs elevated as much as possible. If the edema is not controlled with stockings, patient may require a Coban II wrap. Thank you for this consult. Problem: Chronic
[2018-04-28] MEDS ORDERED: METOPROLOL SUCCINATE 25 MG TABLET.SA PO SCH (21:00)
[2018-04-28] MEDS: NYSTATIN 15 APPL BTL TP SCH (21:28)
[2018-04-28] MEDS: ROSUVASTATIN CALCIUM 20 MG TABLET PO SCH (21:35)
[2018-04-28] MEDS: levETIRAcetam 500 MG TABLET PO SCH (21:37)
[2018-04-28] MEDS: PANTOPRAZOLE SODIUM 40 MG in NORMAL SALINE 100 ML IV SCH (21:45)
[2018-04-29] MEDS: ALBUTEROL SULFATE 2.5 MG/0.5 ML VIAL.NEB IH SCH ×6 (02:34→22:28)
[2018-04-29 06:54] LABS: Hematocrit 25.7 % (42.0-52.0); Hemoglobin 8.1 gm/dL (13.5-18.0); Mean Cell Volume 94.5 fl (78-100); Mean Corpuscular Hemoglobin 29.8 pg (27-31); Mean Corpuscular Hgb Conc 31.5 g/dl (32-36); Mean Platelet Volume 10.6 fl (8-11.3); Neutrophil # 3.1 K/mm3 (1.3-6.0); Neutrophil % 62.6 % (42-75.0); Platelet Count 73 K/mm3 (150-450); Red Blood Count 2.72 M/mm3 (4.7-6.0); Red Cell Distribution Width 15.4 % (11.5-14.0); White Blood Count 4.9 K/mm3 (4.0-10.5)
[2018-04-29 06:57] LABS: Anion Gap 14.1 mmol/L (6.8-13.8); BUN/Creatinine Ratio 14.7 (9.0-21.6); Calcium * 8.4 mg/dL (7.9-10.9); Carbon Dioxide 24.5 mmol/L (24-32.6); Estimated Creat Clear 19.2; Potassium 4.6 mmol/L (3.4-4.6)
[2018-04-29] MEDS: INSULIN ASPART 100 UNITS/ML VIAL SC SCH ×3 (07:31→17:24)
[2018-04-29] MEDS: PANTOPRAZOLE SODIUM 40 MG TABLET.EC PO SCH (07:36)
[2018-04-29] MEDS: ENOXAPARIN SODIUM 40 MG/0.4 ML SYRG SC SCH ×2 (09:43→21:00)
[2018-04-29] MEDS: CHOLECALCIFEROL 5,000 UNIT TABLET NG SCH (09:44)
[2018-04-29] MEDS: FUROSEMIDE 40 MG TABLET NG SCH (09:44)
[2018-04-29] MEDS: CEFDINIR 300 MG CAPSULE PO SCH (09:44)
[2018-04-29] MEDS: LISINOPRIL 5 MG TABLET NG SCH (09:44)
[2018-04-29] MEDS: FERROUS SULFATE 325 MG TABLET NG SCH (09:44)
[2018-04-29] MEDS: CLOPIDOGREL BISULFATE 75 MG TABLET NG SCH (09:44)
[2018-04-29] MEDS: levETIRAcetam 500 MG TABLET PO SCH ×2 (09:44→20:59)
[2018-04-29] MEDS: RIFAXIMIN 200 MG TABLET NG SCH ×2 (09:44→21:00)
[2018-04-29] MEDS: NYSTATIN 15 APPL BTL TP SCH ×2 (09:45→21:00)
[2018-04-29] MEDS: LACTULOSE 10 G/15 ML BTL NG SCH (09:45)
[2018-04-29] MEDS ORDERED: INSULIN ASPART 100 UNITS/ML VIAL SC ONE (10:00)
--- NOTE | 2018-04-29 11:11 | PN ---
Inge Note - Interim Date: 04/29/18 Time: 11:05 Narrative: 04/29/18 11:06 Patient is eager to go home. Stool for occult blood still pending. Hb 8.1. metoprolol xl started yesterday. wound clinic saw patient and diagnosed him with venous insuffucuency with stasis dermatitis. on turbigrip now. Ammonia level down to 60's from over 100. likely source of his acute encephalopthy is GIB more than infection. cr is up to 4.1. will change Metoprolol to nonselective BBlocker. if positive for occult blood consider EGD.
[2018-04-29] MEDS: PROPRANOLOL HCL 10 MG TABLET PO SCH (11:53)
[2018-04-29] MEDS: LACTULOSE 10 G/15 ML BTL PO SCH ×2 (13:34→17:24)
--- NOTE | 2018-04-29 16:48 | PN ---
Subjective - Date and Time Seen Date: 04/29/18 Time: 16:40 Subjective Narrative: patient is AAO x 3. Hb is down to 8.1. Objective - Review of Systems Generalized/Overall Review: Denies: Chills, Fever EENTM: Denies: Blurred Vision Respiratory: Denies: Cough, Shortness of Breath Cardiac: Reports: Edema. Denies: Chest Pain, Palpitations Abdominal: Denies: Nausea, Vomiting Genitourinary Symptoms: Denies: Urgency, Frequency Musculoskeletal Complaints: Denies: Joint Pain - Vitals Vitals: Last Vital Signs Temp 36.1 C 04/29/18 13:53 Pulse 69 04/29/18 14:30 Resp 18 04/29/18 14:30 BP 156/70 H 04/29/18 13:53 Pulse Ox 98 04/29/18 14:20 - Abnormal Lab Findings Abnormal Lab Findings: Abnormal Lab Results 04/29/18 04/29/18 04/29/18 Range/Units 06:40 06:40 13:17 RBC 2.72 L (4.7-6.0) M/mm3 Hgb 8.1 L (13.5-18.0) gm/dL Hct 25.7 L (42.0-52.0) % MCHC 31.5 L (32-36) g/dl RDW 15.4 H (11.5-14.0) % Plt Count 73 L (150-450) K/mm3 Lymphocytes % 18.3 L (20-51) % Monocytes % 13.4 H (0.0-9) % Eosinophils % 4.9 H (0.0-3.0) % Lymphocytes # 0.90 L (1.5-3.5) k/mm3 Chloride 108 H (97-106) mmol/L Anion Gap 14.1 H (6.8-13.8) mmol/L BUN 62 H (6-23) mg/dL Creatinine 4.22 H (0.4-1.4) mg/dL Est GFR (Non-Af Amer) 15 L (60-130) mL/min Random Glucose 114 H (70-110) mg/dL Stool Occult Blood Positive H - Exam Constitutional: Present: Alert, Oriented x3, Cooperative, Obese ENT Exam: Present: hearing grossly normal Neck: Present: supple Respiratory: Present: decreased breath sounds, No rales, No wheezing Cardiovascular/Chest: Present: regular rate, rhythm, no JVD, no murmur Abdomen: Present: Normal bowel sounds, soft, nontender, obese Extremity: Present: no calf tenderness, lower extremity edema Assessment/Plan - Problems/Diagnosis (1) GIB (gastrointestinal bleeding) Problem: Acute Narrative: Hb is down to 8.1 . positive occult blood. likely variceal cojnsider EGD. Propanolol started. already on pantoprazole. (2) Hepatic encephalopathy Problem: Resolved (3) Hyperammonemia Problem: Acute Narrative: improved (4) Liver cirrhosis Problem: Acute Qualifiers: Hepatic cirrhosis type: other cirrhosis Qualified Code(s): K74.69 - Other cirrhosis of liver Narrative: due to HSU (5) Normocytic anemia Problem: Acute Narrative: acute on chronic. consider EGD (6) CKD (chronic kidney disease) stage 4, GFR 15-29 ml/min Problem: Chronic (7) Hypertension Problem: Chronic Qualifiers: Hypertension type: essential hypertension Qualified Code(s): I10 - Essential (primary) hypertension (8) Venous stasis dermatitis of both lower extremities Problem: Chronic Narrative: continue with compression stockings.
[2018-04-29] MEDS: INSULIN GLARGINE,HUM.REC.ANLOG 100 UNITS/ML VIAL SC SCH (20:58)
[2018-04-29] MEDS: ROSUVASTATIN CALCIUM 20 MG TABLET PO SCH (20:59)
[2018-04-29] MEDS: FERROUS SULFATE 325 MG TABLET PO SCH (20:59)
[2018-04-29] MEDS: FUROSEMIDE 40 MG TABLET PO SCH (21:00)
[2018-04-30] MEDS: PROPRANOLOL HCL 10 MG TABLET PO SCH (00:14)
[2018-04-30] MEDS: ALBUTEROL SULFATE 2.5 MG/0.5 ML VIAL.NEB IH SCH ×3 (02:15→10:38)
[2018-04-30 05:39] LABS: Hematocrit 25.9 % (42.0-52.0); Mean Cell Volume 95.2 fl (78-100); Mean Corpuscular Hemoglobin 29.4 pg (27-31); Mean Corpuscular Hgb Conc 30.9 g/dl (32-36); Mean Platelet Volume 11.3 fl (8-11.3); Neutrophil # 2.8 K/mm3 (1.3-6.0); Neutrophil % 57.3 % (42-75.0); Platelet Count 87 K/mm3 (150-450); Red Blood Count 2.72 M/mm3 (4.7-6.0); Red Cell Distribution Width 15.3 % (11.5-14.0); White Blood Count 4.9 K/mm3 (4.0-10.5)
[2018-04-30 05:54] LABS: Anion Gap 12.8 mmol/L (6.8-13.8); BUN/Creatinine Ratio 13.3 (9.0-21.6); Calcium * 8.7 mg/dL (7.9-10.9); Carbon Dioxide 23.9 mmol/L (24-32.6); Estimated Creat Clear 18.5; Potassium 4.7 mmol/L (3.4-4.6)
[2018-04-30] MEDS: PANTOPRAZOLE SODIUM 40 MG TABLET.EC PO SCH (07:23)
[2018-04-30] MEDS: INSULIN ASPART 100 UNITS/ML VIAL SC SCH ×2 (07:23→12:03)
[2018-04-30] MEDS ORDERED: LISINOPRIL 5 MG TABLET PO SCH (09:00)
[2018-04-30] MEDS ORDERED: CLOPIDOGREL BISULFATE 75 MG TABLET PO SCH (09:00)
[2018-04-30] MEDS ORDERED: CHOLECALCIFEROL 5,000 UNIT TABLET PO SCH (09:00)
[2018-04-30] MEDS: LACTULOSE 10 G/15 ML BTL PO SCH ×2 (09:35→12:02)
[2018-04-30] MEDS: RIFAXIMIN 200 MG TABLET NG SCH (09:35)
[2018-04-30] MEDS: CEFDINIR 300 MG CAPSULE PO SCH (09:36)
[2018-04-30] MEDS: FERROUS SULFATE 325 MG TABLET PO SCH (09:36)
[2018-04-30] MEDS: levETIRAcetam 500 MG TABLET PO SCH (09:36)
[2018-04-30] MEDS: NYSTATIN 15 APPL BTL TP SCH (09:38)
[2018-04-30] MEDS: ENOXAPARIN SODIUM 40 MG/0.4 ML SYRG SC SCH (09:46)
[2018-04-30] MEDS: FUROSEMIDE 40 MG TABLET PO SCH (09:47)
--- NOTE | 2018-04-30 10:10 | DS ---
(1) GIB (gastrointestinal bleeding) Diagnosis(s): likely variceal r/o gastritis. propanolol started . On pantoprazole. will schedule an EGD on outpatient basis . discussed with Dr. Yvonne Bolden. Problem: Acute (2) Hepatic encephalopathy Diagnosis(s): continue with lactulose . Problem: Resolved (3) Hyperammonemia Problem: Acute (4) Liver cirrhosis Problem: Acute Qualifiers: Hepatic cirrhosis type: other cirrhosis Qualified Code(s): K74.69 - Other cirrhosis of liver (5) Normocytic anemia Diagnosis(s): positive occult blood. for EGD. Problem: Acute (6) CKD (chronic kidney disease) stage 4, GFR 15-29 ml/min Diagnosis(s): will decrease his lasix and hold his lisinopril. if not getting better consider hepatorenal syndome. Problem: Chronic (7) Hypertension Problem: Chronic Qualifiers: Hypertension type: essential hypertension Qualified Code(s): I10 - Essential (primary) hypertension (8) Venous stasis dermatitis of both lower extremities Diagnosis(s): follow up with Wound clinic Problem: Chronic Description of Stay: Luis Clifton, is a 63-year-old male with past medical history of liver cirrhosis, obstructive sleep apnea, hypertension, seizure disorder, coronary artery disease, old [place], chronic kidney disease, diabetes mellitus type 2, vitamin D deficiency, hyperlipidemia, and CHF was brought to ER and admitted on 04/27/2018 due to worsening confusion and disorientation for the past several days. Patient's reports that since April 19, 2018 patient started struggling with confusion but in the last 2 days [employer] he got worse. Patient has been hospitalized multiple times for hyper ammonemia secondary to his liver cirrhosis. He is currently on multiple doses of lactulose at home and reports that he has been compliant with her lactulose but might have missed a dose a couple of days ago. Patient also has been experiencing episodes of fever and chills in the past few days but she denies cough or difficulty breathing. He is a very well-known patient at the wound clinic where he is treated for multiple ulcers in his lower extremities, however his reports that he has not been to the wound clinic to be treated in more than a month. Since then his lower extremities have been more erythematous, warm, and tender to palpation than usual. He was admitted for hyperammonemia with hepatic encephalopathy and cellulitis. He was started on IV antibiotics. Wound clinic was consulted and they felt he had chronic venous insufficiency with stasis dermatitis. His Hb which was 10.1 admission dropped to 8.1 but has remained stable since then. He had positive stool for occult blood . He has never had an EGD before. Propanolol was started . I discussed the case with the surgeon cutting and boning supervisor and she can do the EGD on outpatient basis. He is not on spironolactone and will defer from starting it as his K is elevated today and his Cr is creeping up. We will decrease his Lasix for now and stop his lisinopril. He will make an appointment with Dr. Munoz. Procedures Performed: none Results and Findings: Pending Mircobiology Results 04/27/18 08:38 Blood Blood Culture - Preliminary NO GROWTH AFTER 48 HOURS 04/27/18 08:38 Blood Blood Culture - Preliminary NO GROWTH AFTER 48 HOURS Lab Pending Results 04/27/18 08:38: WBC 12.2 H, RBC 3.45 L, Hgb 10.1 L, Hct 31.7 L, MCV 91.9, MCH 29.3, MCHC 31.9 L, RDW 14.8 H, Plt Count 108 L, MPV 10.0, Immature Gran % (Auto) 0.30, Immature Gran # (Auto) 0.04 H, Neutrophils % 80.8 H, Lymphocytes % 8.0 L, Monocytes % 8.2, Eosinophils % 2.1, Basophils % 0.6, Nucleated RBC % 0.0, Neutrophils # 9.9 H, Lymphocytes # 0.97 L, Monocytes # 1.0, Eosinophils # 0.3, Absolute Basophils 0.1 04/27/18 08:38: Sodium 139, Plasma Sodium 139, Potassium 5.3 H, Chloride 104, Carbon Dioxide 26.5, Anion Gap 13.8, BUN 49 H, Creatinine 3.49 H, Est GFR (Non- Af Amer) 19 L, BUN/Creatinine Ratio 14.0, Random Glucose 83, Calcium 8.9, Calcium Adj for Albumin 9.6, Total Bilirubin 0.8, AST 26, ALT 18 L, Alkaline Phosphatase 128, C-Reactive Prot, Quant 1.9 H, Total Protein 8.3 H, Albumin 2.7 L 04/27/18 08:38: Lactic Acid, Venous 1.5 04/27/18 08:38: Ammonia 107.0 H 04/27/18 08:38: Influenza Type A Ag Negative, Influenza Type B Ag Negative 04/27/18 08:47: Urine Color Yellow, Urine Appearance Clear, Urine pH 7.0, Ur Specific [place] 1.020, Urine Protein 100 H, Urine Glucose (UA) Negative, Urine Ketones Negative, Urine Blood 250 H, Urine Nitrate Negative, Urine Bilirubin Negative, Prot Sulfosalicylic Acd 4+ H, Urine Urobilinogen Normal, Ur Leukocyte Esterase Negative, Urine RBC 10-25 H, Urine WBC None seen, Ur Epithelial Cells None seen, Urine Bacteria None seen, Urine Culture Comments Culture to follow 04/27/18 09:45: PT 11.4 H, INR (Anticoag Therapy) 1.14 H, PTT (Jose Martin) 26.5 04/28/18 06:00: Procalcitonin 9.51 H 04/28/18 06:21: WBC 7.7 D, RBC 2.80 L, Hgb 8.4 L, Hct 26.0 L, MCV 92.9, MCH 30.0, MCHC 32.3, RDW 15.3 H, Plt Count 79 L, MPV 10.3, Immature Gran % (Auto) 0.50 H, Immature Gran # (Auto) 0.04 H, Neutrophils % 78.6 H, Lymphocytes % 10.8 L, Monocytes % 8.4, Eosinophils % 1.3, Basophils % 0.4, Nucleated RBC % 0.0, Neutrophils # 6.0, Lymphocytes # 0.83 L, Monocytes # 0.6, Eosinophils # 0.1, Absolute Basophils 0.0 04/28/18 06:21: Sodium 141, Plasma Sodium 141, Potassium 5.1 H, Chloride 107 H, Carbon Dioxide 24.7, Anion Gap 14.4 H, BUN 59 H, Creatinine 4.03 H D, Est GFR (Non-Af Amer) 16 L, BUN/Creatinine Ratio 14.6, Random Glucose 123 H D, Calcium 8.4, Calcium Adj for Albumin 9.6, Total Bilirubin 0.7, AST 19, ALT 12 L, Alkaline Phosphatase 79, Total Protein 6.9, Albumin 2.1 L 04/28/18 06:21: Ammonia 62.0 H 04/29/18 06:40: WBC 4.9 D, RBC 2.72 L, Hgb 8.1 L, Hct 25.7 L, MCV 94.5, MCH 29.8, MCHC 31.5 L, RDW 15.4 H, Plt Count 73 L, MPV 10.6, Immature Gran % (Auto) 0.20, Immature Gran # (Auto) 0.01, Neutrophils % 62.6, Lymphocytes % 18.3 L, Monocytes % 13.4 H, Eosinophils % 4.9 H, Basophils % 0.6, Nucleated RBC % 0.0, Neutrophils # 3.1, Lymphocytes # 0.90 L, Monocytes # 0.7, Eosinophils # 0.2, Absolute Basophils 0.0 04/29/18 06:40: Sodium 142, Plasma Sodium 142, Potassium 4.6, Chloride 108 H, Carbon Dioxide 24.5, Anion Gap 14.1 H, BUN 62 H, Creatinine 4.22 H, Est GFR (Non-Af Amer) 15 L, BUN/Creatinine Ratio 14.7, Random Glucose 114 H, Calcium 8.4 04/29/18 13:17: Stool Occult Blood Positive H 04/30/18 05:05: WBC 4.9, RBC 2.72 L, Hgb 8.0 L, Hct 25.9 L, MCV 95.2, MCH 29.4, MCHC 30.9 L, RDW 15.3 H, Plt Count 87 L, MPV 11.3, Immature Gran % (Auto) 0.60 H, Immature Gran # (Auto) 0.03, Neutrophils % 57.3, Lymphocytes % 23.3, Monocytes % 10.6 H, Eosinophils % 7.4 H, Basophils % 0.8, Nucleated RBC % 0.0, Neutrophils # 2.8, Lymphocytes # 1.14 L, Monocytes # 0.5, Eosinophils # 0.4, Absolute Basophils 0.0 04/30/18 05:05: Sodium 137, Plasma Sodium 139, Potassium 4.7 H, Chloride 105, Carbon Dioxide 23.9 L, Anion Gap 12.8, BUN 58 H, Creatinine 4.36 H, Est GFR (Non-Af Amer) 15 L, BUN/Creatinine Ratio 13.3, Random Glucose 224 H D, Calcium 8.7 Discharge Location: Home Disposition: Home self-care Condition: Stable Discharge Activity: Activity as tolerated Discharge Diet: Consistent carbs, Low salt Referrals: Mercy Feng DO [Primary Care Provider] - Additional Patient Instructions (free text): -Please make TCM appointment unless detention discharge. Thank you! Melissa @ [phone]. Patient is establishing with Dr. Munoz. Make an appointment with her next week. Schedule an appointment with Dr. Yuan sanon EGD on outpatient basis. Prescriptions (Any new or edited meds): Acetaminophen 500 mg PO QID PRN #30 tablet PRN Reason: Pain/Fever Furosemide [Lasix] 40 mg PO DAILY #7 tablet Insulin Degludec [Tresiba Flextouch U-100] 30 unit SQ DAILY #1 insuln.pen Nystatin [Mycostatin Powder] 1 appl TP BID #1 btl Pantoprazole Sodium [Protonix] 40 mg PO DAILY@0700 #30 tablet. Propranolol HCl [Inderal] 10 mg PO TID #90 tablet Complete Home Medications List: Complete Home Medication List: Atorvastatin Calcium [Lipitor] 40 mg PO DAILY #30 tab 04/07/17 Cholecalciferol (Vitamin D3) [Vitamin D3] 5,000 unit PO DAILY #30 tab 04/07/17 albuterol sulfate HFA 90 mcg/actuation aerosol inhaler 1 puff IH Q6H PRN 10/24/17 clopidogrel 75 mg tablet 75 mg PO DAILY 10/24/17 Insulin Aspart [Novolog Flexpen] 30 unit SQ TID 03/10/18 Lactulose [Enulose] 30 ml PO TID #900 ml 03/11/18 C-PAP See Dose Instructions .ROUTE .MEDSUPPLY #1 ea 04/07/18 blood sugar diagnostic strips See Dose Instructions .ROUTE .MEDSUPPLY #10 ea 04/07/18 blood-glucose meter kit See Dose Instructions .ROUTE .MEDSUPPLY #1 ea 04/07/18 Ferrous Sulfate [Iron] 325 mg PO BID 04/27/18 Rifaximin [Xifaxan] 550 mg PO BID 04/27/18 levetiracetam 500 mg tablet 500 mg PO BID #60 tab 04/28/18 Acetaminophen 500 mg PO QID PRN #30 tablet 04/30/18 Furosemide [Lasix] 40 mg PO DAILY #7 tablet 04/30/18 Insulin Degludec [Tresiba Flextouch U-100] 30 unit SQ DAILY #1 insuln.pen 04/30/18 Nystatin [Mycostatin Powder] 1 appl TP BID #1 btl 04/30/18 Pantoprazole Sodium [Protonix] 40 mg PO DAILY@0700 #30 tablet.dr 04/30/18 Propranolol HCl [Inderal] 10 mg PO TID #90 tablet 04/30/18 Amb Orders for Discharge: Basic Metabolic Panel Time Frame: 05/03/18, Location: Laboratory CBC Time Frame: 05/03/18, Location: Laboratory
[2018-04-30 12:59] VITALS: BP 140/66
[2018-04-30] MEDS ORDERED: PROPRANOLOL HCL 10 MG TABLET PO SCH (13:00)
== END 2018-04-30 13:45 | disposition home or self-care (01) | DRG 442 ==
LOC: ER 07:57 → MS 10:32 → INTOOBSV 10:32 → MS 12:40
PROVIDERS: ADMIT Family Medicine; ATTEND Internal Medicine
DX: L97.829 Non-pressure chronic ulcer of other part of left lower leg with unspecified severity; I13.0 Hypertensive heart and chronic kidney disease with heart failure and stage 1 through stage 4 chronic kidney disease, or unspecified chronic kidney disease; L03.116 Cellulitis of left lower limb; E86.0 Dehydration; Z87.891 Personal history of nicotine dependence; I87.2 Venous insufficiency (chronic) (peripheral); E66.01 Morbid (severe) obesity due to excess calories; L03.115 Cellulitis of right lower limb; Z83.3 Family history of diabetes mellitus; Z68.42 Body mass index [BMI] 45.0-49.9, adult; I86.4 Gastric varices; E78.5 Hyperlipidemia, unspecified; I25.2 Old myocardial infarction; R65.10 Systemic inflammatory response syndrome (SIRS) of non-infectious origin without acute organ dysfunction; K72.90 Hepatic failure, unspecified without coma; Z79.4 Long term (current) use of insulin; K29.00 Acute gastritis without bleeding; E72.4 Disorders of ornithine metabolism; I25.10 Atherosclerotic heart disease of native coronary artery without angina pectoris; I87.8 Other specified disorders of veins; K74.60 Unspecified cirrhosis of liver; I50.9 Heart failure, unspecified; N18.4 Chronic kidney disease, stage 4 (severe); E13.22 Other specified diabetes mellitus with diabetic chronic kidney disease; Z79.02 Long term (current) use of antithrombotics/antiplatelets; Z88.1 Allergy status to other antibiotic agents; E87.5 Hyperkalemia; G40.909 Epilepsy, unspecified, not intractable, without status epilepticus; L97.929 Non-pressure chronic ulcer of unspecified part of left lower leg with unspecified severity; E55.9 Vitamin D deficiency, unspecified; G47.33 Obstructive sleep apnea (adult) (pediatric); Z95.1 Presence of aortocoronary bypass graft; Z88.8 Allergy status to other drugs, medicaments and biological substances; D64.9 Anemia, unspecified
CPT/HCPCS: 36415; 71010; 71045; 76705; 77003; 80048; 80053; 81001; 82140; 82272; 83605; 84145; 85025; 85610; 85730; 86140; 87040; 87086; 87400; 87449; 93005; 94640; 94664; 96365; 99285